=== PATIENT | female | born 1970 | race Caucasian/White ===

== ENCOUNTER → 2016-12-04 | Outpatient (CLI) | payer OTHER ==
[~2016-12-04] MED LIST: ACET-2267 PO; AMLO10TA2 PO; AMLO2.5T2 PO; ASPI-983 PO; ATOR20TA66 PO; BUDE10.2 IH; CATHETER FLUSH 10 ML SYR IV PRN; CLOP75TA28 PO; CLOP75TA69 PO; GABA-488 PO; LORA10TA7 PO; MECL-106 PO; METH4TAB PO; NAPR500T3 PO; OMG1KC PO; PANT40SU PO; PANT40TA2 PO; REGADENOSON 0.4 MG/5 ML SYR (LEXISCAN) IV ONE; TIOT4MIS2 IH; [UNRECOGNIZED DRUG - CODE] TP
--- OUTSIDE RECORDS SUMMARY | 2016-12-04 07:39 | XMS REPORT | Continuity of Care Document ---
Author Author [facility] Organization [facility] Address Unknown Phone Unavailable Care Team Providers Care Manager Employment Name Role Phone BELLO SEPULVEDA DO PCP Insurance Providers Payer Name Policy Number Subscriber Name Relationship CIGNA [id number] Elana Preciado 18 Self / Same As Patient Advance Directives Directive Response Recorded Date/Time Advance Directives No 07/17/16 11:49am Health Care Power of Holter Technician No 07/17/16 11:49am Organ Donor No 07/17/16 11:49am Problems Active Problems Medical Problem Onset Date Status Raynauds syndrome Unknown Acute Medications Current Home Medications Medication Dose Units Route Directions Days/Qty Instructions Start Date Tiotropium [place] 4 Gm 2 Puff Inhalation Once as needed for Daily 07/17/16 Budesonide/Formoterol Fumarate 10.2 Gm 1 Puff Inhalation Daily 07/17 Aspirin 81 Mg 81 Mg Oral Daily 07/17/16 Meclizine Hcl 25 Mg 25 Mg Oral Twice A Day as needed for Vertigo Naproxen 500 Mg 500 Mg Oral Twice A Day With Meals 07/17/16 Gabapentin 300 Mg 300 Mg Oral Twice A Day 07/17/16 Loratadine 10 Mg 10 Mg Oral Daily 07/17/16 Amlodipine Besylate 10 Mg 10 Mg Oral Daily 07/17/16 Povidone-Iodine 59 Ml Topical Twice A Day FOR USE ON LEFT HAND MIDDLE FINGER 07/17/16 Clopidogrel Bisulfate 75 Mg 75 Mg Oral Daily 07/18/16 Pantoprazole Sodium 40 Mg 40 Mg Oral Daily 16 Past Home Medications Medication Directions Ordered Status Methylprednisolone 4 Mg/Dose-Pack Tab.ds.pk, 0 Oral As Directed 09/26/11 Discontinued Amlodipine Besylate 2.5 Mg Tablet, 2.5 Mg Oral Daily 05/05/16 Discontinued Social History Social History Problem Response Recorded Date/Time Alcohol Use Denies Use 05/05/2016 9:24pm Recreational Drug Use No 05/05/2016 9:24pm Recent Foreign Travel No 06/27/2016 1:04pm Type Used Cigarettes 07/17/2016 12:03pm Hospital Discharge Instructions No hospital discharge instructions. Plan of Care Prescriptions See Medication Section Functional Status No functional status results. Allergies, Adverse Reactions, Alerts Allergen Type Severity Reaction Status Last Updated oxycodone HCl Allergy Severe SOA, RASH Active 09/26/11 Erythromycin Lactobionate Allergy Severe SOA, RASH Active 09/26/11 Sulfa (Sulfonamide Antibiotics) ([id number]) Allergy Unknown Active 07/06 Codeine Allergy Unknown Active 12/08/06 Acetaminophen Allergy Severe SOA, RASH Active 09/26/11 methocarbamol ([id number]) Allergy Severe SOA, RASH Active 09/26/11 Immunizations No immunization records. Vital Signs No known vital signs results. Results No known relevant diagnostic tests, laboratory data and/or discharge summary. Procedures No known history of procedures. Encounters Encounter Location Arrival/Admit Date Discharge/Depart Date Attending Provider Discharged Recurring [facility] 08/08/16 3:08pm 9:17am REMINGTON MUÑOZ APRN
--- NOTE | 2016-12-05 07:51 | ECHOCARDIOGRAPHY REPORT ---
PROCEDURE PHYSICIAN: LISY VIZCARRA DATE OF PROCEDURE: 12/04/2016 TWO DIMENSIONAL ECHOCARDIOGRAM REPORT PRIMARY PHYSICIAN: OTHER PHYSICIAN: REFERRING PHYSICIAN: Dr. Leung ORDERING PHYSICIAN: INDICATION FOR THE PROCEDURE: 1. Coronary artery disease. 2. Dyspnea. MEASUREMENTS DERIVED VALUES LV DIAMETER (LAX) NORMALS NORMALS Diastolic 4.4 (3.6-5.2) Eject. Fract. 60% (60%+/-6%) Systolic (2.3-3.9) Diastolic Vol. % Shortening (0.22-0.42) Systolic Vol. Aortic Root IVS THICKNESS Diastolic 1 (0.6-1.1) LVPW THICKNESS Diastolic 1 (0.6-1.1) LA DIAMETER Systolic 2.8 (2.1-3.7) FINDINGS: 1. Technical quality is good. 2. The left ventricle is normal in size with normal contractility. Systolic function appeared to be normal. Estimated ejection fraction 60%. 3. The left atrium is normal in size. No clot or thrombus were seen within the left atrium. 4. The right atrium and right ventricle are normal in size. No clot or thrombus were seen within the right side. 5. Mitral valve is normal in morphology with mild mitral regurgitation noted by color Doppler flow. No mitral valve prolapse. No mitral valve stenosis. 6. Aortic valve is trileaflet with normal opening and closing pattern. No significant aortic stenosis or regurgitation was seen. 7. Tricuspid valve is normal in morphology with mild tricuspid regurgitation noted by color Doppler flow. Doppler across tricuspid valve estimated pulmonary artery pressure of 6+ right atrial pressure. 8. Pulmonic valve is functioning normally. 9. No pericardial effusion. IN CONCLUSION: 1. Normal left ventricular size and systolic function. Estimated ejection fraction 60%. 2. Mild mitral and tricuspid regurgitation. 3. Estimated pulmonary artery pressure of 10 to 15 mmHg. Job ID: [id number] Dictated Date: 12/04/2016 16:46:11 Sr. Vendor Management Associate Date: 12/05/2016 07:48:13 / dalila
== END ==
LOC: CARD 07:36
PROVIDERS: ATTEND Internal Medicine Cardiovascular Disease
DX: I77.1 Stricture of artery (principal); M35.8 Other specified systemic involvement of connective tissue; L98.499 Non-pressure chronic ulcer of skin of other sites with unspecified severity; Z72.0 Tobacco use
CPT/HCPCS: 93306

== ENCOUNTER → 2016-12-09 | Outpatient (CLI) | payer OTHER ==
[~2016-12-09] VITALS: Ht 170.2 cm; Wt 83.0 kg
--- OUTSIDE RECORDS SUMMARY | 2016-12-09 07:31 | XMS REPORT | Continuity of Care Document ---
Author Author [facility] Organization [facility] Address Unknown Phone Unavailable Care Team Providers Care Dumping Machine Operator Name Role Phone BELLO SEPULVEDA DO PCP Insurance Providers Payer Name Policy Number Subscriber Name Relationship CIGNA [id number] Elana Preciado 18 Self / Same As Patient Advance Directives Directive Response Recorded Date/Time Advance Directives No 07/17/16 11:49am Health Care Power of Rehabilitation Services Manager No 07/17/16 11:49am Organ Donor No 07/17/16 11:49am Problems Active Problems Medical Problem Onset Date Status Raynauds syndrome Unknown Acute Medications Current Home Medications Medication Dose Units Route Directions Days/Qty Instructions Start Date Tiotropium [place] 4 Gm 2 Puff Inhalation Once as [...] SOA, RASH Active 09/26/11 Sulfa (Sulfonamide Antibiotics) ([id number]) Allergy Unknown Active 07/06 Codeine Allergy Unknown Active 12/08/06 Acetaminophen Allergy Severe SOA, RASH Active 09/26/11 methocarbamol ([id number]) Allergy Severe SOA, RASH Active 09/26/11 Immunizations No immunization records. Vital Signs No known vital signs results. Results No known relevant diagnostic tests, laboratory data and/or discharge summary. Procedures No known history of procedures. Encounters Encounter Location Arrival/Admit Date Discharge/Depart Date Attending Provider Discharged Recurring [facility] 08/08/16 3:08pm 9:17am REMINGTON MUÑOZ APRN
[2016-12-09 08:57] VITALS: BP 152/83
--- NOTE | 2016-12-09 11:29 | STRESS TEST ---
PROCEDURE PHYSICIAN: LISY VIZCARRA LEXISCAN MYOVIEW STRESS TEST REPORT DATE OF PROCEDURE: 12/09/2016 REFERRING PHYSICIAN: Dr. Leung INDICATION FOR THE PROCEDURE: Coronary artery disease, shortness of breath. Baseline heart rate is 68, baseline blood pressure: 157/75 baseline EKG: Sinus rhythm with no ischemic changes. SUMMARY: The patient was injected with 10.77 mCi of technetium 99 Myoview and the resting images were obtained. Then the patient received 0.4 mg of Lexiscan followed by 29.2 mCi of technetium 99 Myoview. Throughout the test, there were no EKG changes. The resting and stress images were reviewed and compared in the short axis, horizontal long axis, and vertical long axis views. Review of the images showed breast attenuation affecting the quality of the images, there is mild decreased uptake at the mid to apical anterior wall, with subtle reversibility. No significant ischemia was noted. SSS is 2, SDS 2, TID value 1.14. On the gated images, the left ventricle appeared to be normal size with normal contractility. Calculated ejection fraction 59%. CONCLUSION: 1. The patient tolerated Lexiscan well. 2. Breast attenuation with mild decreased uptake at the mid to apical anterior wall. Subtle reversibility. No significant ischemia was noted. 3. Normal left ventricular size with normal contractility. Calculated ejection fraction 59%. Job ID: [id number] Dictated Date: 12/09/2016 10:58:16 Conditioner Tumbler Operator Date: 12/09/2016 11:25:25 / alva
== END ==
LOC: CARD 07:26
PROVIDERS: ATTEND Internal Medicine Cardiovascular Disease
DX: Z01.810 Encounter for preprocedural cardiovascular examination (principal); L98.499 Non-pressure chronic ulcer of skin of other sites with unspecified severity; I77.1 Stricture of artery; Z72.0 Tobacco use; M35.8 Other specified systemic involvement of connective tissue; R06.02 Shortness of breath; I73.9 Peripheral vascular disease, unspecified
CPT/HCPCS: 78452; 93017

== ENCOUNTER 2016-12-11 07:45 | Day surgery (SDC) | payer OTHER ==
[~2016-12-11] VITALS: Ht 170.2 cm; Wt 80.3 kg
[2016-12-11] VITALS (7 sets, daily range): BP systolic 130–156; BP diastolic 69–93
[~2016-12-11 07:45] MED LIST changes: -ACET-2267 PO; -ATOR20TA66 PO; -CATHETER FLUSH 10 ML SYR IV PRN; -CLOP75TA69 PO; -OMG1KC PO; -PANT40TA2 PO; -REGADENOSON 0.4 MG/5 ML SYR (LEXISCAN) IV ONE
--- OUTSIDE RECORDS SUMMARY | 2016-12-11 07:48 | XMS REPORT | Continuity of Care Document ---
Author Author [facility] Organization [facility] Address Unknown Phone Unavailable Care Team Providers Care Distribution Warehouse Manager Name Role Phone BELLO SEPULVEDA DO PCP Insurance Providers Payer Name Policy Number Subscriber Name Relationship CIGNA [id number] Elana Preciado 18 Self / Same As Patient Advance Directives Directive Response Recorded Date/Time Advance Directives No 07/17/16 11:49am Health Care Power of Typing Teacher No 07/17/16 11:49am Organ Donor No 07/17/16 11:49am Problems Active Problems Medical Problem Onset Date Status Raynauds syndrome Unknown Acute Medications Current Home Medications Medication Dose Units Route Directions Days/Qty Instructions Start Date Tiotropium [place] 4 Gm 2 Puff Inhalation Once as [...] SOA, RASH Active 09/26/11 Sulfa (Sulfonamide Antibiotics) ([id number]) Allergy Unknown Active 07/06 Codeine Allergy Unknown Active 12/08/06 Acetaminophen Allergy Severe SOA, RASH Active 09/26/11 methocarbamol ([id number]) Allergy Severe SOA, RASH Active 09/26/11 Immunizations No immunization records. Vital Signs No known vital signs results. Results No known relevant diagnostic tests, laboratory data and/or discharge summary. Procedures No known history of procedures. Encounters Encounter Location Arrival/Admit Date Discharge/Depart Date Attending Provider Discharged Recurring [facility] 08/08/16 3:08pm 9:17am REMINGTON MUÑOZ APRN
--- OUTSIDE RECORDS SUMMARY | 2016-12-11 07:48 | XMS REPORT | Continuity of Care Document ---
Author Author [facility] Organization [facility] Address Unknown Phone Unavailable Care Team Providers Care Gasoline Locomotive Crane Operator Name Role Phone BELLO SEPULVEDA DO PCP Insurance Providers Payer Name Policy Number Subscriber Name Relationship CIGNA [id number] Elana Preciado 18 Self / Same As Patient Advance Directives Directive Response Recorded Date/Time Advance Directives No 07/17/16 11:49am Health Care Power of Feeder Switchboard Operator No 07/17/16 11:49am Organ Donor No 07/17/16 11:49am Problems Active Problems Medical Problem Onset Date Status Raynauds syndrome Unknown Acute Medications Current Home Medications Medication Dose Units Route Directions Days/Qty Instructions Start Date Tiotropium [place] 4 Gm 2 Puff Inhalation Once as [...] SOA, RASH Active 09/26/11 Sulfa (Sulfonamide Antibiotics) ([id number]) Allergy Unknown Active 07/06 Codeine Allergy Unknown Active 12/08/06 Acetaminophen Allergy Severe SOA, RASH Active 09/26/11 methocarbamol ([id number]) Allergy Severe SOA, RASH Active 09/26/11 Immunizations No immunization records. Vital Signs No known vital signs results. Results No known relevant diagnostic tests, laboratory data and/or discharge summary. Procedures No known history of procedures. Encounters Encounter Location Arrival/Admit Date Discharge/Depart Date Attending Provider Discharged Recurring [facility] 08/08/16 3:08pm 9:17am REMINGTON MUÑOZ APRN
[2016-12-11] MEDS ORDERED: NS IV 1000 ML 1,000 ML ONE (08:21)
[2016-12-11] MEDS ORDERED: HEParin (CATH LAB) 2,000 ML IV ONE (08:21)
[2016-12-11] MEDS ORDERED: LIDOCAINE 1% INJ 20 ML (XYLOCAINE) VIAL ONE ×2 (08:21→11:13)
[2016-12-11] MEDS ORDERED: NS IV 1000 ML 1,000 ML IV SCH (09:00)
[2016-12-11 09:21] LABS: BILIRUBIN,URINE NEGATIVE (NEGATIVE); KETONES,URINE NEGATIVE (NEGATIVE); LEUKOCYTE ESTERASE ,URINE NEGATIVE (NEGATIVE); NITRITE,URINE NEGATIVE (NEGATIVE); PH,URINE 6.5 (5-9); PROTEIN,URINE NEGATIVE (NEGATIVE); UROBILINOGEN,URINE NORMAL (NORMAL)
[2016-12-11] MEDS ORDERED: CLOP75TA69 PO (09:22)
[2016-12-11 09:23] LABS: RED BLOOD COUNT 4.95 10^6/uL (4.35-5.85); RED CELL DISTRIBUTION WIDTH 13.7 % (10.0-14.5)
[2016-12-11] MEDS ORDERED: PANT40TA2 PO (09:24)
[2016-12-11] MEDS ORDERED: ACET-2267 PO (09:24)
--- NOTE | 2016-12-11 09:27 | Diagnostic Imaging Report ---
INDICATION: Shortness breath, tobacco use. EXAMINATION: Portable chest at 9:16 AM. FINDINGS: There are some emphysematous changes in the lungs with scarring. There is some scarring and/or granulomatous change at the right lung base. All of these appear stable compared to 07/17/2016. There are no infiltrates, effusions, or pneumothoraces. IMPRESSION: No acute abnormality is seen. No interval change compared to 07/17/2016. Dictated by: Dictated on workstation # [id number]
[2016-12-11 09:30] LABS: PROTHROMBIN TIME PATIENT 12.6 SEC (12.2-14.7)
[2016-12-11 09:38] LABS: ALANINE AMINOTRANSFERASE 15 U/L (0-55); ALBUMIN 4.3 G/DL (3.2-4.5); ANION GAP 9 MMOL/L (5-14); ASPARTATE AMINO TRANSFERASE 14 U/L (5-34); BILIRUBIN,TOTAL 0.5 MG/DL (0.1-1.0); BLOOD UREA NITROGEN 10 MG/DL (7-18); BUN/CREATININE RATIO 13; CARBON DIOXIDE 24 MMOL/L (21-32); CHLORIDE 106 MMOL/L (98-107); CHOLESTEROL 209 MG/DL (< 200); CREATININE SERUM 0.75 MG/DL (0.60-1.30); DIRECT LDL 162 MG/DL (1-129); GFR ESTIMATED > 60; GLUCOSE 89 MG/DL (70-105); POTASSIUM 3.6 MMOL/L (3.6-5.0); SODIUM 139 MMOL/L (135-145); TOTAL PROTEIN 6.9 G/DL (6.4-8.2); TRIGLYCERIDES 146 MG/DL (<150); VLDL CHOLESTEROL 29 MG/DL (5-40)
--- NOTE | 2016-12-11 10:39 | Cardiac Procedure Note-CS/ASA ---
Pre-Procedure Note Pre-Op Procedure Note H&P Reviewed The H&P was reviewed, patient examined and no changes noted. Date H&P Reviewed: Dec 11, 2016 Time H&P Reviewed: 10:39 Conscious Sedation Pre-Proced Time Reviewed: 10:39 ASA Class: 3 Airway Mallampati Classification: ([place] appropriate class) I. II. III, IV Lungs Heart ASA score ASA 1: a normal healthy patient ASA 2: a patient with a mild systemic disease (mid diabetes, controlled hypertension, obesity X ASA 3: a patient with a severe systemic disease that limits activity (angina , COPD, prior Myocardial infarction) ASA 4: a patient with an incapacitating disease that is a constant threat to life (CHF, renal failure) ASA 5: a moribund patient not expected to survive 24 hrs. (ruptured aneurysm) ASA 6: a declared brain patient whose organs are being harvested. For emergent operations, add the letter E after the classification Grade 3 Sedation Plan: Analgesia, Amnesia, Plan communicated to team members, Discussed options with patient/fam, Discussed risks with patient/fam Note The patient is an appropriate candidate to undergo the planned procedure, sedation, and anesthesia. The patient immediately re-assessed prior to indication. LISY VIZCARRA MD Dec 11, 2016 10:39
[2016-12-11] MEDS ORDERED: NITROGLYCERIN DRIP 25 MG/D5W 250 ML IV ONE (11:01)
[2016-12-11] MEDS ORDERED: MIDAZOLAM 5 MG/5 ML (VERSED) VIAL ONE ×2 (11:13→12:05)
[2016-12-11] MEDS ORDERED: HEParin 1000 UNIT/ML (10ML VIAL) FOR BOLUS ONE (11:14)
[2016-12-11] MEDS ORDERED: fentaNYL INJECTION 100 MCG/2 ML AMP ONE ×2 (11:14→12:05)
[2016-12-11] MEDS: NS IV 1000 ML 1,000 ML IV SCH ×2 (12:04→22:30)
[2016-12-11] MEDS ORDERED: ASPIRIN 81 MG CHEW (CHILDREN'S ASA) ONE (12:10)
[2016-12-11] MEDS ORDERED: CLOPIDOGREL 300 MG (PLAVIX) TABLET PO ONE (12:10)
[2016-12-11] MEDS ORDERED: PATIENT MAY USE OWN MEDS, ALL PO SCH (12:15)
[2016-12-11] MEDS ORDERED: ACETAMINOPHEN 500 MG TAB (TYLENOL) PO PRN (12:15)
[2016-12-11] MEDS ORDERED: MECLIZINE 25 MG (ANTIVERT) TAB PO SCH (13:00)
[2016-12-11] MEDS: OMEGA 3 (FISH OIL) 1000 MG CAP PO SCH (16:34)
[2016-12-11] MEDS: MECLIZINE 25 MG (ANTIVERT) TAB PO SCH (19:52)
[2016-12-11] MEDS ORDERED: ATORVASTATIN 20 MG (LIPITOR) TABLET PO SCH (21:00)
[2016-12-12] VITALS: BP 126/83
[2016-12-12 04:00] VITALS: BP 142/97
[2016-12-12 05:01] LABS: RED BLOOD COUNT 4.76 10^6/uL (4.35-5.85); RED CELL DISTRIBUTION WIDTH 13.8 % (10.0-14.5); WHITE BLOOD COUNT 13.2 10^3/uL (4.3-11.0)
[2016-12-12 05:19] LABS: ANION GAP 9 MMOL/L (5-14); BLOOD UREA NITROGEN 6 MG/DL (7-18); BUN/CREATININE RATIO 8; CALCIUM 8.9 MG/DL (8.5-10.1); CARBON DIOXIDE 23 MMOL/L (21-32); CHLORIDE 105 MMOL/L (98-107); CREATININE SERUM 0.74 MG/DL (0.60-1.30); GFR ESTIMATED > 60; GLUCOSE 87 MG/DL (70-105); POTASSIUM 3.5 MMOL/L (3.6-5.0); SODIUM 137 MMOL/L (135-145)
[2016-12-12] MEDS: OMEGA 3 (FISH OIL) 1000 MG CAP PO SCH (06:45)
[2016-12-12] MEDS: MECLIZINE 25 MG (ANTIVERT) TAB PO SCH (06:48)
[2016-12-12] MEDS: NS IV 1000 ML 1,000 ML IV SCH (06:52)
[2016-12-12] MEDS ORDERED: PANTOPRAZOLE 40 MG (PROTONIX) TAB PO SCH (07:00)
--- NOTE | 2016-12-12 07:59 | Cardiology Progress Note ---
Subjective Subjective/Events-last exam patient is feeling well, both groins are healing well. Palpable pulses bilaterally. Review of Systems General: No Chills, No Night Sweats, No Fatigue, No Malaise, No Appetite, No Other HEENT: No Head Aches, No Visual Changes, No Eye Pain, No Ear Pain, No Dysphasia , No Sinus Congestion, No Post Nasal Drip, No Sore Throat, No Other Pulmonary: No Dyspnea, No Cough, No Pleuritic Chest Pain, No Other Cardiovascular: No: Chest Pain, Edema, Lt Headedness, Orthopnea, Other, Palpitations, Paroxysmal Noc. Dyspnea Objective-Cardiology Exam Last Set of Vital Signs Vital Signs 12/12/16 04:00 Temp 97.1 Pulse 85 Resp 18 B/P 142/97 Pulse Ox 99 O2 Delivery Room Air Capillary Refill : Less Than 3 Seconds I&O Intake and Output 12/12/16 00:00 Intake Total 720 ml Balance 720 ml Intake Oral 720 ml # Voids 2 General: Alert, Oriented X3, Cooperative HEENT: Atraumatic, PERRLA Neck: Supple, No JVD, No Thyromegaly Lungs: Clear to Auscultation, Normal Air Movement Heart: Regular Rate, Normal S1, Normal S2, No Murmurs Abdomen: Normal Bowel Sounds, Soft, No Tenderness, No Hepatosplenomegaly, No Masses Extremities: No Clubbing, No Cyanosis, No Edema, Normal Pulses, No Tenderness/ Swelling Skin: No Rashes, No Breakdown, No Significant Lesion Neuro: Normal Gait, Normal Speech, Strength at 5/5 X4 Ext, Normal Tone, Sensation Intact Psych/Mental Status: Mental Status NL, Mood NL Results Lab Laboratory Tests 12/11/16 09:14 12/12/16 04:38 A/P-Cardiology Admission Diagnosis coronary artery disease Peripheral arterial disease Hypertension Hyperlipidemia Tobaccoism Assessment/Plan coronary artery disease, ostial circumflex artery stenosis. Moderate disease Peripheral arterial disease total occlusion of the left common iliac status post pertains intervention with stent with excellent results. History of subclavian stenosis with gangrenous finger. Improving. Hypertension, controlled. Continue current medication Hyperlipidemia, controlled Tobaccoism educated again in length on smoking cessation LISY VIZCARRA MD Dec 12, 2016 07:59
[2016-12-12 08:00] VITALS: BP 134/69
[2016-12-12] MEDS ORDERED: ATOR20TA66 PO (08:00)
[2016-12-12] MEDS ORDERED: UMECLIDINIUM BROMIDE (INCRUSE ELLIPTA) 7'S IH SCH (08:00)
[2016-12-12] MEDS ORDERED: TIOTROPIUM BROMIDE (SPIRIVA) 5'S INHALER IH SCH (08:00)
[2016-12-12] MEDS ORDERED: OMG1KC PO (08:00)
--- NOTE | 2016-12-12 08:01 | Discharge Inst-Post CATH ---
Discharge Inst-CATH Post Cardiac Cath D/C Inst Follow Up/Plan Appointment with Dr. Asif's office in 2-4 weeks CARDIAC CATH DISCHARGE INSTRUCTIONS *Hold Metformin for 48 hours post heart cath. ACTIVITY * Go Home directly and rest. * Limit activity of the leg (or wrist if it was used) for 7 days including aerobics, swimming, jogging, bicycling, etc. * Restrict stair-climbing for 7 days if possible, if not, climb up with your non -cath leg, then bring together on the same step. * Avoid lifting, pushing, pulling or excessive movement of the affected extremity for 7 days. * Customary sexual activity may be resumed after 2 days-use caution not to use a position that strains or causes pain to the affected extremity. * No driving for 24 hours. * NO SMOKING. * Avoid straining for bowel movements for 7 days. * Gentle walking on level ground is allowed. * Returning to work will depend on the type of procedure and the results. Your doctor will discuss this with you. CALL YOUR DOCTOR FOR ANY OF THE FOLLOWING: *If bleeding from the puncture site occurs- Apply gentle pressure to site with clean cloth and call your doctor or EMS. * If a knot or lump forms under the skin, increases in size, or causes pain. * If bruising appears to be worsening or moving further down your leg instead of disappearing. * Temperature above 101 F. CARE OF YOUR GROIN INCISION; * Bruising or purple discoloration of the skin near the puncture site is common. * You may shower only, no bathtub bathing for 5 days. Be careful to avoid slipping as your leg may feel stiff. * If a closure device was used on your femoral artery, please see the attached guide regarding care of the device and your leg. * REMOVE the dressing from your groin the next day after your procedure in the shower. CARE OF YOUR WRIST INCISION; * Bruising or purple discoloration of the skin near the puncture site is common. * You may shower. * DO NOT submerge wrist. * Remove dressing in 24 hours. LISY ASIF MD Dec 12, 2016 08:01
[2016-12-12] MEDS ORDERED: KCL 20 MEQ TAB (K-DUR) PO NR (08:17)
[2016-12-12 09:00] VITALS: BP 134/69
[2016-12-12] MEDS ORDERED: ASPIRIN E.C. 81 MG (ECOTRIN) TAB PO SCH ×2 (09:00)
[2016-12-12] MEDS ORDERED: NON-FORMULARY MEDICATION 1 EA EA (Tiotropium Bromide (Spiriva Respimat) 2 PUFF) IH SCH (09:00)
[2016-12-12] MEDS ORDERED: CLOPIDOGREL 75 MG (PLAVIX) TABLET PO SCH ×2 (09:00)
--- NOTE | 2016-12-12 10:38 | CARDIAC CATHETERIZATION ---
PROCEDURE PHYSICIAN: LISY VIZCARRA CARDIAC CATHETERIZATION REPORT WITH PERIPHERAL ANGIOGRAM DATE OF PROCEDURE: 12/11/2016 REFERRING PHYSICIAN: Dr. Mora BRIEF HISTORY: Mrs. Tompkins is a 46-year-old lady with history of peripheral arterial disease. She had subclavian stenosis and a stent placed in her left subclavian artery. She has been having lower extremity pain. Had an abnormal MAGNUS is 0.77 on the right and 0.58 on the left. The patient had an abnormal stress test with breast attenuation and decreased uptake at the mid to apical anterior wall, with subtle reversibility. She was scheduled for left heart catheterization, possible PTCA and peripheral angiogram. PROCEDURE NOTE: After explaining the procedure to the patient, all pros and cons were explained. All questions were answered. The patient signed a consent, then she was placed on the cardiac catheterization laboratory. The right groin was prepped in a sterile fashion. Local anesthesia applied to the right groin. 6-Vietnamese sheath was placed in the right femoral artery. Combination of right and left Aubree catheter were used to access the right and left coronary system. Multiple views were used. Pigtail catheter advanced to the left ventricular cavity. Pressure was measured. No left ventriculogram was done. Pullback LV to aorta was done. The aortic arch angiogram was done. Then I pulled pigtail catheter to the abdominal aorta an abdominal aortogram with runoff to the lower extremity was done. At that point, the patient was noted to have total occlusion of the left iliac artery, common iliac artery. I attempted to cross over from using an IM guide without success. I proceeded with placement of a sheath on the left groin. After placement of the sheet I used IMC, I placed it at the ostium of occlusion then I was able to advance a glidewire across the lesion. Proceeded with balloon dilatation using 5.0 x 40 mm balloon, [place] 35 balloon without any complication. Multiple inflations were made. Then after that through the left sheath I was able to advance a Storq wire easily without difficulties, proceed with placement of the pigtail catheter in the abdominal aorta. Did angiogram again, then proceeded with stent deployment using Omnilink elite 7 x 59 x 80 metal stent expanded over a balloon at the common femoral area. It appears that the artery is slightly larger. I reintroduced the [place] balloon 8 mm and expanded the distal portion of the stent without complication. Angiogram showed excellent result. Pressure was measured at the left groin prior to the procedure and after the procedure showing significant improvement. At that point both sheaths were removed. Mynx device deployed. Hemostasis achieved. HEMODYNAMICS: The left ventricle pressure is 111/14, end-diastolic pressure 14, aortic pressure 111/60, mean of 80 no significant gradient across the aortic valve. ANATOMY: 1. Left main coronary artery is bifurcating to left anterior descending and left circumflex artery with no obstructive disease. 2. Left anterior descending artery is moderate in size with mild irregularity. No significant obstructive disease. 3. Left circumflex artery is moderate in size, 60% ostial left circumflex artery stenosis. It appeared to be moderate. 4. Right coronary artery is moderate in size with mild disease, nonobstructive disease. 5. Aortic arch angiogram: Aortic arch was done in the left anterior oblique position. The aortic arch is normal in size. Origin of the carotid artery, innominate artery and left subclavian artery appeared patent, the stent in the left subclavian artery is patent. 6. Abdominal aortogram with bilateral runoff: Abdominal aortogram was done with automatic injection with bilateral runoff of the lower extremities. The abdominal aorta is normal in size. There is mild disease on the right side, down to the trifurcation; the flow was brisk. There is total occlusion on the left side at the left common iliac artery. PERCUTANEOUS INTERVENTION: The patient had total occlusion of the left common iliac artery. Successful complex intervention, then deployment of Omnilink Elite bare-metal stent 7 x 59 x 80 with sikh of the flow with expanded at the common iliac area to 7 mm and distally at the common femoral area to 8 mm with excellent results. Pressure gradient returned to normal immediately after the intervention. CONCLUSION: 1. Total occlusion of the left common iliac artery, status post percutaneous intervention, then stent deployment using Omnilink Elite 7.0 x 59 mm bare metal stent, expanded to 7 mm at the iliac area and 8 mm the femoral area with excellent results. 2. Patent stent in the left subclavian artery with no obstructive disease. 3. 60% ostial left circumflex artery stenosis, nonobstructive disease, mild to moderate disease in the LAD and right coronary artery. DISCUSSION AND RECOMMENDATION: Mrs. Tompkins had ischemia in the anterior wall does not match 60% ostial circumflex lesion. Medical therapy is recommended. I will monitor her closely and consider reevaluation in one year. Possible FFR to that area. Continue with aspirin and Plavix, encourage smoking cessation and started on Lipitor and fish oil. Encourage compliance with medication. Job ID: [id number] Dictated Date: 12/11/2016 12:16:19 Data Integrity Specialist Date: 12/12/2016 10:17:17 / alva
--- NOTE | 2016-12-12 10:41 | DISCHARGE SUMMARY ---
PROCEDURE PHYSICIAN: LISY VIZCARRA CARDIAC CATHETERIZATION REPORT WITH PERIPHERAL ANGIOGRAM DATE OF PROCEDURE: 12/11/2016 REFERRING PHYSICIAN: Dr. Mora BRIEF HISTORY: Mrs. Tompkins is a 46-year-old lady with history of peripheral arterial disease. She had subclavian stenosis and a stent placed in her left subclavian artery. She has been having lower extremity pain. Had an abnormal MAGNUS is 0.77 on the right and 0.58 on the left. The patient had an abnormal stress test with breast attenuation and decreased uptake at the mid to apical anterior wall, with subtle reversibility. She was scheduled for left heart catheterization, possible PTCA and peripheral angiogram. PROCEDURE NOTE: After explaining the procedure to the patient, all pros and cons were explained. All questions were answered. The patient signed a consent, then she was placed on the cardiac catheterization laboratory. The right groin was prepped in a sterile fashion. Local anesthesia applied to the right groin. 6-Bulgar[place] sheath was placed in the right femoral artery. Combination of right and left Aubree catheter were used to access the right and left coronary system. Multiple views were used. Pigtail catheter advanced to the left ventricular cavity. Pressure was measured. No left ventriculogram was done. Pullback LV to aorta was done. The aortic arch angiogram was done. Then I pulled pigtail catheter to the abdominal aorta an abdominal aortogram with runoff to the lower extremity was done. At that point, the patient was noted to have total occlusion of the left iliac artery, common iliac artery. I attempted to cross over from using an IM guide without success. I proceeded with placement of a sheath on the left groin. After placement of the sheet I used IMC, I placed it at the ostium of occlusion then I was able to advance a glidewire across the lesion. Proceeded with balloon dilatation using 5.0 x 40 mm balloon, [place] 35 balloon without any complication. Multiple inflations were made. Then after that through the left sheath I was able to advance a Storq wire easily without difficulties, proceed with placement of the pigtail catheter in the abdominal aorta. Did angiogram again, then proceeded with stent deployment using Omnilink elite 7 x 59 x 80 metal stent expanded over a balloon at the common femoral area. It appears that the artery is slightly larger. I reintroduced the [place] balloon 8 mm and expanded the distal portion of the stent without complication. Angiogram showed excellent result. Pressure was measured at the left groin prior to the procedure and after the procedure showing significant improvement. At that point both sheaths were removed. Mynx device deployed. Hemostasis achieved. HEMODYNAMICS: The left ventricle pressure is 111/14, end-diastolic pressure 14, aortic pressure 111/60, mean of 80 no significant gradient across the aortic valve. ANATOMY: 1. Left main coronary artery is bifurcating to left anterior descending and left circumflex artery with no obstructive disease. 2. Left anterior descending artery is moderate in size with mild irregularity. No significant obstructive disease. 3. Left circumflex artery is moderate in size, 60% ostial left circumflex artery stenosis. It appeared to be moderate. 4. Right coronary artery is moderate in size with mild disease, nonobstructive disease. 5. Aortic arch angiogram: Aortic arch was done in the left anterior oblique position. The aortic arch is normal in size. Origin of the carotid artery, innominate artery and left subclavian artery appeared patent, the stent in the left subclavian artery is patent. 6. Abdominal aortogram with bilateral runoff: Abdominal aortogram was done with automatic injection with bilateral runoff of the lower extremities. The abdominal aorta is normal in size. There is mild disease on the right side, down to the trifurcation; the flow was brisk. There is total occlusion on the left side at the left common iliac artery. PERCUTANEOUS INTERVENTION: The patient had total occlusion of the left common iliac artery. Successful complex intervention, then deployment of Omnilink Elite bare-metal stent 7 x 59 x 80 with shinto of the flow with expanded at the common iliac area to 7 mm and distally at the common femoral area to 8 mm with excellent results. Pressure gradient returned to normal immediately after the intervention. CONCLUSION: 1. Total occlusion of the left common iliac artery, status post percutaneous intervention, then stent deployment using Omnilink Elite 7.0 x 59 mm bare metal stent, expanded to 7 mm at the iliac area and 8 mm the femoral area with excellent results. 2. Patent stent in the left subclavian artery with no obstructive disease. 3. 60% ostial left circumflex artery stenosis, nonobstructive disease, mild to moderate disease in the LAD and right coronary artery. DISCUSSION AND RECOMMENDATION: Mrs. Tompkins had ischemia in the anterior wall does not match 60% ostial circumflex lesion. Medical therapy is recommended. I will monitor her closely and consider reevaluation in one year. Possible FFR to that area. Continue with aspirin and Plavix, encourage smoking cessation and started on Lipitor and fish oil. Encourage compliance with medication. FINAL DIAGNOSIS: 1. Coronary artery disease. 2. Peripheral arterial disease. 3. Hyperlipidemia. 4. Gangrenous finger. Job ID: [id number] Dictated Date: 12/11/2016 12:16:19 [employer] Date: 12/12/2016 10:37:56/alva
== END 2016-12-12 09:05 | disposition home or self-care (01) ==
LOC: CATH 07:45 → ICU 12:30 → 4TH 20:58 → CATH 12-12 09:05
PROVIDERS: ATTEND Internal Medicine Cardiovascular Disease
DX: R94.39 Abnormal result of other cardiovascular function study (principal); I70.203 Unspecified atherosclerosis of native arteries of extremities, bilateral legs; I70.92 Chronic total occlusion of artery of the extremities; I25.10 Atherosclerotic heart disease of native coronary artery without angina pectoris; I73.01 Raynaud's syndrome with gangrene; L98.499 Non-pressure chronic ulcer of skin of other sites with unspecified severity; Z79.899 Other long term (current) drug therapy; Z72.0 Tobacco use
CPT/HCPCS: 36221; 36415; 37221; 71010; 75630; 80048; 80053; 80061; 81000; 85027; 85347; 85610; 85730; 87081; 93005; 93458

== ENCOUNTER → 2017-07-08 | Outpatient (CLI) | payer OTHER ==
[~2017-07-08] MED LIST changes: +ACET-2267 PO; +ATOR20TA66 PO; +CATHETER FLUSH 10 ML SYR IV PRN; +CLOP75TA69 PO; +IOHEXOL 350 MG/ML 100 ML (OMNIPAQUE 350) VIAL IV ONE; +NS 100 ML (IVPB) BAG IV ONE; +OMG1KC PO; +PANT40TA2 PO
--- NOTE | 2017-07-08 11:56 | Diagnostic Imaging Report ---
CLINICAL INDICATION: Patient with bilateral carotid stenosis. Patient states no issues. Patient has a stent under left clavicle area. EXAM: CT angiogram of the neck/carotids performed with 80 cc of Omnipaque 350 IV contrast. Coronal and sagittal MIP images were created to better evaluate anatomy. COMPARISON: None. FINDINGS: Streak artifact from patient body habitus partially obscures the aortic arch and proximal great vessels. There is motion artifact with duplication appearance of the stent within the proximal left subclavian artery which greatly limits evaluation. Adjacent streak artifact also greatly limits evaluation. There is contrast seen within the stent which is grossly patent. There is contrast within the cervical left vertebral artery and left subclavian artery. Again, the streak and motion artifact limits evaluation for subtle areas of stenosis. There is atherosclerotic plaque involving the origin of the left common carotid artery with no significant stenosis. Three-vessel aortic arch is seen. There is mild narrowing of the origin of the left cervical vertebral artery. Relatively dominant left vertebral artery is seen. Both cervical vertebral arteries are patent. There is noncalcified atherosclerotic plaque involving the origin of the right common carotid artery causing mild stenosis. There is also a partially calcified atherosclerotic plaque involving the distal right CCA, proximal right ECA, and proximal right cervical ICA. There is complete occlusion of the proximal cervical right ICA at its origin. There is reconstitution of the cavernous right carotid artery at the level of the ophthalmic artery. There is also a prominent anterior communicating artery and right A1 GASTON which may also be contributing to reconstitution. There is very small caliber of the right cavernous carotid artery to its supraclinoid region. Remainder of the visualized [place] is unremarkable. The origin of the right ECA is severely narrowed and near occlusion with string sign seen. There is contrast opacification of the distal branches of the left ECA. There is atherosclerotic disease of the origins of the left ECA and ICA which show mild narrowing. There is multiple calcified nodules within the visualized upper lung lama. There is significant emphysematous lung disease. There are curvilinear opacities, patchy areas of consolidation, and parenchymal band seen within both upper lobes. There is mild prominence of the posterior lingual adenoid soft tissue which may be reactive. Otherwise, the neck soft tissue structures show no significant abnormality. There is no lymphadenopathy. There is suggestion of diffuse disc bulge at the C5-C6 level with posterior disc spurs which cause at least mild central canal narrowing and at least mild to moderate left neural foramen narrowing. Visualized portion of the intracranial structures is unremarkable. IMPRESSION: 1: Limited evaluation of the neck vascular structures near the aortic arch and great vessels due to patient body habitus and streak artifact. 2: Proximal left subclavian artery stent is seen, but motion artifact and streak artifact greatly obscures this region. There is contrast seen within the left subclavian stent and contrast within the left subclavian vein and left cervical vertebral artery. Due to the artifact, it is difficult to evaluate for any degree of more subtle stenosis. 3: There is complete occlusion of the cervical right ICA which is reconstituted in the cavernous right ICA region. Cervical right ICA may be reconstituted from the right ophthalmic artery and/or prominent anterior communicating artery. The [place] vessels are otherwise patent with no significant stenosis. 4: There is near complete occlusion of the origin of the right ECA. 5: There is mild stenosis of the origin of the cervical left ICA, proximal left ECA, origin of the cervical left vertebral artery, and origin of the right common carotid artery. 6: Significant emphysematous lung disease with patchy areas of consolidation and suspected scarring with partially calcified nodules. Chest CT scan with contrast would help better evaluate to exclude an underlying mass. Dictated by: Dictated on workstation # [id number]
== END ==
LOC: RAD 07:50
PROVIDERS: ATTEND Internal Medicine Cardiovascular Disease
DX: I65.21 Occlusion and stenosis of right carotid artery (principal); J43.9 Emphysema, unspecified; Z95.828 Presence of other vascular implants and grafts
CPT/HCPCS: 70498

== ENCOUNTER → 2017-07-16 | Outpatient (CLI) | payer OTHER ==
[~2017-07-16] MED LIST changes: -NAPR500T3 PO; +NAPR500T4 PO
--- NOTE | 2017-07-16 17:06 | Diagnostic Imaging Report ---
PROCEDURE: CT chest with contrast only. TECHNIQUE: Multiple contiguous axial images were obtained through the chest after administration of intravenous contrast. INDICATION: Abnormal CT examination. FINDINGS: The recent CTA neck exam of 07/08/2017 noted significant emphysematous lung disease with patchy areas of consolidation and suspected scarring in both lung apices. There were also partially calcified nodules. Those findings are again evident on this study and do not seem to have changed significantly. Furthermore, in reviewing the previous CT chest exam of 10/08/2011, I feel that the areas of abnormal parenchymal density are also stable when compared to that exam. There are also small subcentimeter nodular densities in both lungs, and these seem similar to the prior exam as well. The emphysematous changes and the scar formation involving both lungs seen on the prior study do not appear to have progressed significantly. There is no sign of failure, pneumonia, or pleural effusion to indicate an acute abnormality. The heart size is stable when compared to the prior study and within normal limits. The aorta is not abnormally dilated, and there is no sign of a dissection. The pulmonary arteries were not well opacified and consequently difficult to evaluate for a pulmonary embolus. There is no obvious defect to suggest a pulmonary embolus. There is no mediastinal or hilar adenopathy. The thyroid gland were visualized is unremarkable. There is no evidence of an obvious breast mass. According to our records, the patient has not had a mammogram since 04/28/2015. If the patient has had a recent (within the last year) mammogram elsewhere, then no additional imaging would be recommended. However, if the patient has not had a recent mammogram, then mammography would be recommended. The sections through the upper abdomen fail to show any sign of an acute abnormality. The bone windows are unremarkable for a fracture or for a destructive lesion. IMPRESSION: 1. There are chronic pulmonary changes involving both lungs, particularly the lung apices. There are also nodules in each lung. These findings do seem similar to the prior exam of 10/08/2011. There is no evidence for a neoplastic mass, and there is no sign of an acute cardiopulmonary abnormality. 2. There is no obvious breast mass. Recommendations as above. Dictated by: Dictated on workstation # [id number]
== END ==
LOC: RAD 15:58
PROVIDERS: ATTEND Family Medicine
DX: R91.8 Other nonspecific abnormal finding of lung field (principal)
CPT/HCPCS: 71260

== ENCOUNTER → 2017-08-04 | Outpatient (CLI) | payer OTHER ==
[~2017-08-04] MED LIST changes: -CATHETER FLUSH 10 ML SYR IV PRN; -IOHEXOL 350 MG/ML 100 ML (OMNIPAQUE 350) VIAL IV ONE; -NS 100 ML (IVPB) BAG IV ONE
--- NOTE | 2017-08-05 10:27 | Diagnostic Imaging Report ---
EXAMINATION: Bilateral screening mammogram 2D views with tomosynthesis. The current study was also evaluated with a Computer Aided Detection (CAD) system. INDICATION: Screening. PERSONAL HISTORY: No current complaints stated on the questionnaire. COMPARISON: 05/03/2015. FINDINGS: There are scattered fibroglandular densities. There is an asymmetry with question of architectural distortion seen in the posterior aspect on the left MLO view just above the nipple line level which persist on the tomographic evaluation. The right breast demonstrates no definite change. IMPRESSION: Focal compression view and ultrasound evaluation for an asymmetry in the posterior slightly superior aspect of the left MLO view would be recommended. ACR BI-RADS Category 0: Incomplete. (Needs additional imaging evaluation). Result letter will be mailed to the patient. Note: At least 10% of breast cancer is not imaged by mammography. Dictated by: Dictated on workstation # [id number]
== END ==
LOC: RAD 07:23
PROVIDERS: ATTEND Family Medicine
DX: Z12.31 Encounter for screening mammogram for malignant neoplasm of breast (principal)
CPT/HCPCS: 77067

== ENCOUNTER → 2017-08-14 | Outpatient (CLI) | payer OTHER ==
--- NOTE | 2017-08-14 17:38 | Diagnostic Imaging Report ---
EXAMINATION: Left breast diagnostic mammogram with tomography. The current study was also evaluated with a Computer Aided Detection (CAD) system. COMPARISON: 08/04/17. INDICATION: Asymmetry was seen along the posterior central aspect of the left MLO view. FINDINGS/IMPRESSION: The area of asymmetry was evaluated with focal compression views with no definite underlying lesion seen in favor of summation artifact of parenchyma. Ultrasound evaluation pending. ACR BI-RADS Category 0: Incomplete. (Needs additional imaging evaluation). Result letter will be mailed to the patient. Note: At least 10% of breast cancer is not imaged by mammography. Dictated by: Dictated on workstation # [id number]
--- NOTE | 2017-08-14 17:41 | Diagnostic Imaging Report ---
EXAMINATION: Left breast ultrasound. INDICATION: Asymmetry along the posterior superior aspect of the left breast. FINDINGS: Unremarkable breast parenchyma is seen with no focal lesion. IMPRESSION: Negative study. Annual screening mammogram is recommended. ACR BI-RADS Category 1: Negative. Result letter will be mailed to the patient. Note: At least 10% of breast cancer is not imaged by mammography. Dictated by: Dictated on workstation # [id number]
== END ==
LOC: RAD 07:41
PROVIDERS: ATTEND Family Medicine
DX: R92.8 Other abnormal and inconclusive findings on diagnostic imaging of breast (principal)
CPT/HCPCS: 76642

== ENCOUNTER → 2018-10-06 | Outpatient (CLI) | payer OTHER ==
[~2018-10-06] MED LIST changes: -AMLO10TA2 PO; +AMLO10TA6 PO; +NAPR-915 PO; -NAPR500T4 PO
--- NOTE | 2018-10-07 20:22 | Diagnostic Imaging Report ---
INDICATION: Screening. EXAMINATION: Digital mammogram bilateral screening with 3-D tomosynthesis. The current study was also evaluated with a Computer Aided Detection (CAD) system. This study was compared to the prior exams of 08/04/2017 and 04/28/2015. At this time, there are no current complaints. FINDINGS: There are scattered fibroglandular densities in both breasts which could obscure a lesion. On the MLO view of the right breast in the midportion of the superior half of the breast roughly 4 cm from the nipple, there is a 6 mm asymmetric density. There is no corresponding abnormality seen on the craniocaudal view though this density does seem to persist somewhat on the tomographic images. I would recommend that a compression view of this area be obtained in the MLO projection as well as a true lateral view for further study. Ultrasound should also be performed. The left breast is unchanged. IMPRESSION: Additional mammographic views of the right breast would be recommended. Ultrasound should also be performed. ACR BI-RADS Category 0: Incomplete. (Needs additional imaging evaluation). Result letter will be mailed to the patient. Note: At least 10% of breast cancer is not imaged by mammography. Dictated on workstation # [id number]
== END ==
LOC: RAD 07:09
PROVIDERS: ATTEND Family Medicine
DX: Z12.31 Encounter for screening mammogram for malignant neoplasm of breast (principal)
CPT/HCPCS: 77067

== ENCOUNTER → 2018-10-29 | Outpatient (CLI) | payer OTHER ==
--- NOTE | 2018-10-29 09:24 | Diagnostic Imaging Report ---
INDICATION: Abnormal screening mammogram. COMPARISON: 10/09/2018 and 08/05/2017. TECHNIQUE: A true lateral view and spot compression views of the right breast were obtained. The current study was also evaluated with a Computer Aided Detection (CAD) system. FINDINGS: The previously described density appears to be attributable to superimposed fibroglandular tissue. There is no discrete mass, spiculated lesion, or suspicious calcification identified. IMPRESSION: Benign findings. ACR BI-RADS Category 2: Benign findings. Result letter will be mailed to the patient. Note: At least 10% of breast cancer is not imaged by mammography. Dictated by: Dictated on workstation # [id number]
== END ==
LOC: RAD 08:11
PROVIDERS: ATTEND Family Medicine
DX: R92.2 Inconclusive mammogram (principal)

== ENCOUNTER 2019-01-02 08:27 | Emergency (ER) | payer OTHER ==
[~2019-01-02] VITALS: Ht 160 cm; Wt 81.6 kg
[~2019-01-02 08:27] MED LIST changes: -AMLO10TA6 PO; +AMLO10TA7 PO
--- OUTSIDE RECORDS SUMMARY | 2019-01-02 08:33 | XMS REPORT | Continuity of Care Document ---
Author Author [facility] Organization [facility] Address Unknown Phone Unavailable Allergies Active Description Code Type Severity Reaction Onset Reported/Identified Relationship to Patient Clinical Status Yes codeine [id number] Drug Allergy Unknown N/A 12/08/2006 Yes Sulfa (Sulfonamide Antibiotics) [id number] Drug Allergy Unknown N/A 2006 Yes acetaminophen [id number] Drug Allergy Severe SOA, RASH 09/26/2011 Yes Erythromycin Lactobionate [id number] Drug Allergy Severe SOA, RASH 2010 Yes methocarbamol [id number] Drug Allergy Severe SOA, RASH 09/26/2011 Yes oxycodone HCl [id number] Drug Allergy Severe SOA, RASH 09/26/2011 Medications There is no data. 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 REMINGTON MUÑOZ APRN Ot S67.42XA CRUSHING INJURY OF LEFT WRIST AND HAND, REMINGTON MUÑOZ APRN Ot X58.XXXA EXPOSURE TO OTHER SPECIFIED FACTORS, INI REMINGTON MUÑOZ APRN Ot Y99.8 OTHER EXTERNAL CAUSE STATUS 10/16/1599 REMINGTON MUÑOZ APRN Ot I73.9 PERIPHERAL VASCULAR DISEASE, UNSPECIFIED 10/16/1599 REMINGTON MUÑOZ APRN Ot S67.42XD CRUSHING INJURY OF LEFT WRIST AND HAND, 09/26/2011 Ot 786.50 CHEST PAIN NOS 09/26/2011 Ot 786.52 PAINFUL RESPIRATION 04/28/2015 Ot 786.05 04/28/2015 Ot 793.19 04/28/2015 Ot 496 04/28/2015 Ot 793.82 04/28/2015 Ot V76.12 04/28/2015 Ot 793.80 04/28/2015 BELLO SEPULVEDA DO Ot 626.2 04/28/2015 GELLENDER DO, BELLO Biswas Ot 783.21 04/28/2015 GELLENDER DO, BELLO Biswas Ot 626.2 04/28/2015 GELLENDER DO, BELLO Biswas Ot 783.21 04/28/2015 GELLENDER DO, BELLO Biswas Ot 626.2 04/28/2015 GELLENDER DO, BELLO Biswas Ot V76.12 05/16/2015 GELLENDER DO, BELLO Biswas Ot V76.12 05/05/2016 Ot F17.210 NICOTINE DEPENDENCE, CIGARETTES, UNCOMPL 05/05/2016 Ot 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 05/09/2016 GELLENDER DO, BELLO Biswas Ot 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 05/10/2016 GELLENDER DO, BELLO Biswas Ot 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 05/17/2016 GELLENDER DO, BELLO Biswas Ot 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 05/29/2016 GELLENDER DO, BELLO Biswas Ot S69.92XA UNSP INJURY OF LEFT WRIST, HAND AND FING 05/29/2016 GELLENDER DO, BELLO Biswas Ot X58.XXXA EXPOSURE TO OTHER SPECIFIED FACTORS, INI 05/29/2016 GELLENDER DO, BELLO Biswas Ot Y99.8 OTHER EXTERNAL CAUSE STATUS 06/14/2016 GELLENDER DO, BELLO Biswas Ot S69.92XA UNSP INJURY OF LEFT WRIST, HAND AND FING 06/14/2016 GELLENDER DO, BELLO Biswas Ot X58.XXXA EXPOSURE TO OTHER SPECIFIED FACTORS, INI 06/14/2016 GELLENDER DO, BELLO Biswas Ot Y99.8 OTHER EXTERNAL CAUSE STATUS 06/26/2016 GELLENDER DO, BELLO Biswas Ot 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 06/26/2016 GELLENDER DO, BELLO Biswas Ot S69.92XA UNSP INJURY OF LEFT WRIST, HAND AND FING 06/26/2016 GELLENDER DO, BELLO Biswas Ot X58.XXXA EXPOSURE TO OTHER SPECIFIED FACTORS, INI 06/26/2016 GELLENDER DO, BELLO Biswas Ot Y99.8 OTHER EXTERNAL CAUSE STATUS 07/10/2016 GELLENDER DO, BELLO Biswas Ot 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 07/10/2016 GELLENDER DO, BELLO Biswas Ot S69.92XA UNSP INJURY OF LEFT WRIST, HAND AND FING 07/10/2016 GELLENDER DO, BELLO Biswas Ot X58.XXXA EXPOSURE TO OTHER SPECIFIED FACTORS, INI 07/10/2016 GELLENDER DO, BELLO Biswas Ot Y99.8 OTHER EXTERNAL CAUSE STATUS 07/10/2016 REMINGTON MUÑOZ APRN Ot 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 07/10/2016 REMINGTON MUÑOZ INDIAN BLANKET WEAVER Ot S67.42XA CRUSHING INJURY OF LEFT WRIST AND HAND, 07/10/2016 REMINGTON MUÑOZ APRN Ot X58.XXXA EXPOSURE TO OTHER SPECIFIED FACTORS, INI 07/10/2016 REMINGTON MUÑOZ APRN Ot Y99.8 OTHER EXTERNAL CAUSE STATUS 07/11/2016 GELLENDER DO, BELLO Biswas Ot 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 07/11/2016 GELLENDER DO, BELLO Biswas Ot S69.92XA UNSP INJURY OF LEFT WRIST, HAND AND FING 07/11/2016 GELLENDER DO, BELLO Biswas Ot X58.XXXA EXPOSURE TO OTHER SPECIFIED FACTORS, INI 07/11/2016 GELLENDER DO, BELLO Biswas Ot Y99.8 OTHER EXTERNAL CAUSE STATUS 07/11/2016 REMINGTON MUÑOZ APRN Ot 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 07/11/2016 REMINGTON MUÑOZ APRN Ot S67.42XA CRUSHING INJURY OF LEFT WRIST AND HAND, 07/11/2016 REMINGTON MUÑOZ APRN Ot X58.XXXA EXPOSURE TO OTHER SPECIFIED FACTORS, INI 07/11/2016 REMINGTON MUÑOZ INDIAN BLANKET WEAVER Ot Y99.8 OTHER EXTERNAL CAUSE STATUS 07/17/2016 GELLENDER DO, BELLO Biswas Ot 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 07/17/2016 GELLENDER DO, BELLO Biswas Ot S69.92XA UNSP INJURY OF LEFT WRIST, HAND AND FING 07/17/2016 GELLENDER DO, BELLO Biswas Ot X58.XXXA EXPOSURE TO OTHER SPECIFIED FACTORS, INI 07/17/2016 GELLENDER DO, BELLO Biswas Ot Y99.8 OTHER EXTERNAL CAUSE STATUS 07/17/2016 REMINGTON MUÑOZ APRN Ot 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 07/17/2016 REMINGTON MUÑOZ APRN Ot S67.42XA CRUSHING INJURY OF LEFT WRIST AND HAND, 07/17/2016 REMINGTON MUÑOZ APRN Ot X58.XXXA EXPOSURE TO OTHER SPECIFIED FACTORS, INI 07/17/2016 REMINGTON MUÑOZ APRN Ot Y99.8 OTHER EXTERNAL CAUSE STATUS 07/17/2016 REMINGTON MUÑOZ APRN Ot 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 07/17/2016 REMINGTON MUÑOZ APRN Ot S67.42XD CRUSHING INJURY OF LEFT WRIST AND HAND, 07/18/2016 LISY VIZCARRA MD Ot I10 ESSENTIAL (PRIMARY) HYPERTENSION 07/18/2016 LISY VIZCARRA MD Ot 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 07/18/2016 LISY VIZCARRA MD Ot I70.8 ATHEROSCLEROSIS OF OTHER ARTERIES 07/18/2016 LISY VIZCARRA MD Ot 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 07/18/2016 LISY VIZCARRA MD Ot J44.9 CHRONIC OBSTRUCTIVE PULMONARY DISEASE, U 07/18/2016 LISY VIZCARRA MD Ot 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 07/18/2016 LISY VIZCARRA MD Ot Z72.0 TOBACCO USE 07/18/2016 LISY VIZCARRA MD Ot Z79.899 OTHER HALFWAY (CURRENT) DRUG THERAPY 07/23/2016 REMINGTON MUÑOZ APRN Ot 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 07/23/2016 REMINGTON MUÑOZ APRN Ot S67.42XD CRUSHING INJURY OF LEFT WRIST AND HAND, 07/23/2016 BELLO SEPULVEDA DO Ot 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 07/23/2016 BELLO SEPULVEDA DO Ot S69.92XA UNSP INJURY OF LEFT WRIST, HAND AND FING 07/23/2016 BELLO SEPULVEDA DO Ot X58.XXXA EXPOSURE TO OTHER SPECIFIED FACTORS, INI 07/23/2016 BELLO SEPULVEDA DO Ot Y99.8 OTHER EXTERNAL CAUSE STATUS 07/23/2016 WANDA, REMINGTON R INDIAN BLANKET WEAVER Ot 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 07/23/2016 MACHELLE MUÑOZShayna Pham INDIAN BLANKET WEAVER Ot S67.42XA CRUSHING INJURY OF LEFT WRIST AND HAND, 07/23/2016 WANDA REMINGTON Pham INDIAN BLANKET WEAVER Ot X58.XXXA EXPOSURE TO OTHER SPECIFIED FACTORS, INI 07/23/2016 WANDA REMINGTON Pham INDIAN BLANKET WEAVER Ot Y99.8 OTHER EXTERNAL CAUSE STATUS 07/23/2016 WANDA REMINGTON Pham INDIAN BLANKET WEAVER Ot 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 07/23/2016 WANDA REMINGTON Pham INDIAN BLANKET WEAVER Ot S67.42XD CRUSHING INJURY OF LEFT WRIST AND HAND, 07/29/2016 WANDA REMINGTON Pham INDIAN BLANKET WEAVER Ot 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 07/29/2016 WANDA REMINGTON Pham INDIAN BLANKET WEAVER Ot S67.42XA CRUSHING INJURY OF LEFT WRIST AND HAND, 07/29/2016 WANDA REMINGTON Pham INDIAN BLANKET WEAVER Ot X58.XXXA EXPOSURE TO OTHER SPECIFIED FACTORS, INI 07/29/2016 REMINGTON MUÑOZ INDIAN BLANKET WEAVER Ot Y99.8 OTHER EXTERNAL CAUSE STATUS 07/30/2016 LISY VIZCARRA MD Ot I10 ESSENTIAL (PRIMARY) HYPERTENSION 07/30/2016 LISY VIZCARRA MD Ot I70.208 UNSP ATHSCL [place] ARTERIES OF [facility] 07/30/2016 LISY VIZCARRA MD Ot I70.8 ATHEROSCLEROSIS OF OTHER ARTERIES 07/30/2016 LISY VIZCARRA MD Ot 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 07/30/2016 LISY VIZCARRA MD Ot J44.9 CHRONIC OBSTRUCTIVE PULMONARY DISEASE, U 07/30/2016 LISY VIZCARRA MD Ot 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 07/30/2016 LISY VIZCARRA MD Ot Z72.0 TOBACCO USE 07/30/2016 LISY VIZCARRA MD Ot Z79.899 OTHER HALFWAY (CURRENT) DRUG THERAPY 08/08/2016 LISY VIZCARRA MD Ot I10 ESSENTIAL (PRIMARY) HYPERTENSION 08/08/2016 LISY VIZCARRA MD Ot I70.208 UNSP ATHSCL [place] ARTERIES OF [facility] 08/08/2016 LISY VIZCARRA MD Ot I70.8 ATHEROSCLEROSIS OF OTHER ARTERIES 08/08/2016 LISY VIZCARRA MD Ot 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 08/08/2016 LISY VIZCARRA MD, Ot J44.9 CHRONIC OBSTRUCTIVE PULMONARY DISEASE, U 08/08/2016 LISY VIZCARRA MD Ot 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 08/08/2016 LISY VIZCARRA MD Ot Z72.0 TOBACCO USE 08/08/2016 LISY VIZCARRA MD Ot Z79.899 OTHER HALFWAY (CURRENT) DRUG THERAPY 08/19/2016 BELLO SEPULVEDA DO Ot 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 08/19/2016 BELLO SEPULVEDA DO Ot S69.92XA UNSP INJURY OF LEFT WRIST, HAND AND FING 08/19/2016 TEDGLORY BELLO CONRAD Ot X58.XXXA EXPOSURE TO OTHER SPECIFIED FACTORS, INI 08/19/2016 BELLO SEPULVEDA DO Ot Y99.8 OTHER EXTERNAL CAUSE STATUS 08/19/2016 REMINGTON MUÑOZ APRN Ot 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 08/19/2016 REMINGTON MUÑOZ APRN Ot S67.42XA CRUSHING INJURY OF LEFT WRIST AND HAND, 08/19/2016 REMINGTON MUÑOZ APRN Ot X58.XXXA EXPOSURE TO OTHER SPECIFIED FACTORS, INI 08/19/2016 REMINGTON MUÑOZ APRN Ot Y99.8 OTHER EXTERNAL CAUSE STATUS 08/19/2016 REMINGTON MUÑOZ APRN Ot 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 08/19/2016 REMINGTON MUÑOZ APRN Ot S67.42XD CRUSHING INJURY OF LEFT WRIST AND HAND, 08/19/2016 REMINGTON MUÑOZ APRN Ot 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 08/19/2016 REMINGTON MUÑOZ APRN Ot S67.42XA CRUSHING INJURY OF LEFT WRIST AND HAND, 08/19/2016 REMINGTON MUÑOZ APRN Ot X58.XXXA EXPOSURE TO OTHER SPECIFIED FACTORS, INI 08/19/2016 REMINGTON MUÑOZ APRN Ot Y99.8 OTHER EXTERNAL CAUSE STATUS 09/20/2016 Ot 786.05 SHORTNESS OF BREATH 09/20/2016 Ot 793.19 OTHER NONSPECIFIC ABNORMAL FINDING OF NILES 09/20/2016 Ot 496 CHR AIRWAY OBSTRUCT NEC 09/20/2016 Ot 793.82 INCONCLUSIVE MAMMOGRAM 09/20/2016 Ot V76.12 OTH SCREEN MAMMO-MALIGN NEOPLASM OF NURYS 09/20/2016 Ot 793.80 UNSPEC ABNORMAL MAMMOGRAM 09/20/2016 COCO CONRAD, BELLO Biswas Ot 626.2 EXCESSIVE MENSTRUATION 09/20/2016 COCO CONRAD, BELLO Biswas Ot 783.21 LOSS OF WEIGHT 09/20/2016 COCO CONRAD, BELLO Biswas Ot 626.2 EXCESSIVE MENSTRUATION 09/20/2016 COCO CONRAD, BELLO Biswas Ot 783.21 LOSS OF WEIGHT 09/20/2016 COCO CONRAD, BELLO Biswas Ot 626.2 EXCESSIVE MENSTRUATION 09/20/2016 COCO CONRAD, BELLO Biswas Ot V76.12 OTH SCREEN MAMMO-MALIGN NEOPLASM OF NURYS 09/20/2016 BELLO SEPULVEDA DO Ot V76.12 OTH SCREEN MAMMO-MALIGN NEOPLASM OF NURYS 09/20/2016 COCO CONRAD, BELLO Biswas Ot S99.911A UNSPECIFIED INJURY OF RIGHT ANKLE, INITI 09/20/2016 COCO CONRAD BELLO Biswas Ot W19.XXXA UNSPECIFIED FALL, INITIAL ENCOUNTER 09/20/2016 COCO CONRAD BELLO Biswas Ot Y92.[address] [facility] [address] [facility] NON[facility] (PRIVATE 09/20/2016 BELLO SEPULVEDA DO Ot Y99.8 OTHER EXTERNAL CAUSE STATUS 09/20/2016 REMINGTON MUÑOZ APRN Ot I73.9 PERIPHERAL VASCULAR DISEASE, UNSPECIFIED 09/20/2016 REMINGTON MUÑOZ APRN Ot S67.42XD CRUSHING INJURY OF LEFT WRIST AND HAND, 09/20/2016 REMINGTON MUÑOZ APRN Ot 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 [facility] Ot S69.92XA UNSP INJURY OF LEFT WRIST, HAND AND FING 09/20/2016 [facility] Ot X58.XXXA EXPOSURE TO OTHER SPECIFIED FACTORS, INI 09/20/2016 COCO CONRADBELLO Ot Y99.8 OTHER EXTERNAL CAUSE STATUS 09/30/2016 REMINGTON MUÑOZ INDIAN BLANKET WEAVER Ot I73.9 PERIPHERAL VASCULAR DISEASE, UNSPECIFIED 09/30/2016 REMINGTON MUÑOZ INDIAN BLANKET WEAVER Ot S67.42XD CRUSHING INJURY OF LEFT WRIST AND HAND, 10/08/2016 REMINGTON MUÑOZ INDIAN BLANKET WEAVER Ot I73.9 PERIPHERAL VASCULAR DISEASE, UNSPECIFIED 10/08/2016 WANDA REMINGTON Pham INDIAN BLANKET WEAVER Ot S67.42XD CRUSHING INJURY OF LEFT WRIST AND HAND, 10/08/2016 REMINGTON MUOÑZ INDIAN BLANKET WEAVER Ot I73.9 PERIPHERAL VASCULAR DISEASE, UNSPECIFIED 10/08/2016 MACHELLE MUÑOZShayna Pham INDIAN BLANKET WEAVER Ot S67.42XD CRUSHING INJURY OF LEFT WRIST AND HAND, 12/04/2016 COCO BELLO CONRAD Ot 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 12/04/2016 REMINGTON MUÑOZ INDIAN BLANKET WEAVER Ot S67.42XD CRUSHING INJURY OF LEFT WRIST AND HAND, 12/05/2016 LISY VIZCARRA MD Ot I77.1 STRICTURE OF ARTERY 12/05/2016 LISY VIZCARRA MD Ot 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 12/05/2016 LISY VIZCARRA MD Ot M35.8 OTHER SPECIFIED SYSTEMIC INVOLVEMENT OF 12/05/2016 LISY VIZCARRA MD Ot Z72.0 TOBACCO USE 12/09/2016 LISY VIZCARRA MD Ot I73.9 PERIPHERAL VASCULAR DISEASE, UNSPECIFIED 12/09/2016 LISY VIZCARRA MD Ot I77.1 STRICTURE OF ARTERY 12/09/2016 LISY VIZCARRA MD Ot 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 12/09/2016 LISY VIZCARRA MD Ot M35.8 OTHER SPECIFIED SYSTEMIC INVOLVEMENT OF 12/09/2016 LISY VIZCARRA MD Ot R06.02 SHORTNESS OF BREATH 12/09/2016 LISY VIZCARRA MD Ot Z01.810 ENCOUNTER FOR PREPROCEDURAL CARDIOVASCUL 12/09/2016 LISY VIZCARRA MD Ot Z72.0 TOBACCO USE 12/10/2016 LISY VIZCARRA MD Ot I73.9 PERIPHERAL VASCULAR DISEASE, UNSPECIFIED 12/10/2016 LISY VIZCARRA MD Ot I77.1 STRICTURE OF ARTERY 12/10/2016 LISY VIZCARRA MD Ot 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 12/10/2016 LISY VIZCARRA MD Ot M35.8 OTHER SPECIFIED SYSTEMIC INVOLVEMENT OF 12/10/2016 LISY VIZCARRA MD Ot R06.02 SHORTNESS OF BREATH 12/10/2016 LISY VIZCARRA MD Ot Z01.810 ENCOUNTER FOR PREPROCEDURAL CARDIOVASCUL 12/10/2016 LISY VIZCARRA MD Ot Z72.0 TOBACCO USE 12/10/2016 LISY VIZCARRA MD Ot I73.9 PERIPHERAL VASCULAR DISEASE, UNSPECIFIED 12/10/2016 LISY VIZCARRA MD Ot I77.1 STRICTURE OF ARTERY 12/10/2016 LISY VIZCARRA MD Ot 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 12/10/2016 LISY VIZCARRA MD Ot M35.8 OTHER SPECIFIED SYSTEMIC INVOLVEMENT OF 12/10/2016 LISY VIZCARRA MD Ot R06.02 SHORTNESS OF BREATH 12/10/2016 LISY VIZCARRA MD Ot Z01.810 ENCOUNTER FOR PREPROCEDURAL CARDIOVASCUL 12/10/2016 LISY VIZCARRA MD Ot Z72.0 TOBACCO USE 12/12/2016 LISY VIZCARRA MD Ot I25.10 ATHSCL HEART DISEASE OF [place] CORONARY 12/12/2016 LISY VIZCARRA MD Ot I70.203 UNSP ATHSCL [place] ARTERIES OF [facility] 12/12/2016 LISY VIZCARRA MD Ot 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 12/12/2016 LISY VIZCARRA MD Ot 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 12/12/2016 LISY VIZCARRA MD Ot 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 12/12/2016 LISY VIZCARRA MD Ot R94.39 ABNORMAL RESULT OF OTHER CARDIOVASCULAR 12/12/2016 LISY VIZCARRA MD Ot Z72.0 TOBACCO USE 12/12/2016 LISY VIZCARRA MD Ot Z79.899 OTHER SAFETY SITTER (CURRENT) DRUG THERAPY 12/17/2016 LISY VIZCARRA MD Ot I77.1 STRICTURE OF ARTERY 12/17/2016 LISY VIZCARRA MD Ot 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 12/17/2016 LISY VIZCARRA MD Ot M35.8 OTHER SPECIFIED SYSTEMIC INVOLVEMENT OF 12/17/2016 LISY VIZCARRA MD Ot Z72.0 TOBACCO USE 12/24/2016 LISY VIZCARRA MD Ot I25.10 ATHSCL HEART DISEASE OF [place] CORONARY 12/24/2016 LISY VIZCARRA MD Ot I70.203 [facility] [place] ARTERIES OF [facility] 12/24/2016 LISY VIZCARRA MD Ot 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 12/24/2016 LISY VIZCARRA MD Ot 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 12/24/2016 LISY VIZCARRA MD Ot 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 12/24/2016 LISY VIZCARRA MD Ot R94.39 ABNORMAL RESULT OF OTHER CARDIOVASCULAR 12/24/2016 LISY VIZCARRA MD Ot Z72.0 TOBACCO USE 12/24/2016 LISY VIZCARRA MD Ot Z79.899 OTHER HALFWAY (CURRENT) DRUG THERAPY 12/26/2016 LISY VIZCARRA MD Ot I73.9 PERIPHERAL VASCULAR DISEASE, UNSPECIFIED 12/26/2016 LISY VIZCARRA MD Ot I77.1 STRICTURE OF ARTERY 12/26/2016 LISY VIZCARRA MD Ot 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 12/26/2016 LISY VIZCARRA MD Ot M35.8 OTHER SPECIFIED SYSTEMIC INVOLVEMENT OF 12/26/2016 LISY VIZCARRA MD Ot R06.02 SHORTNESS OF BREATH 12/26/2016 LISY VIZCARRA MD Ot Z01.810 ENCOUNTER FOR PREPROCEDURAL CARDIOVASCUL 12/26/2016 LISY VIZCARRA MD Ot Z72.0 TOBACCO USE 07/04/2017 BELLO SEPULVEDA DO Ot 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 07/04/2017 BELLO SEPULVEDA DO Ot S69.92XA UNSP INJURY OF LEFT WRIST, HAND AND FING 07/04/2017 BELLO SEPULVEDA DO Ot X58.XXXA EXPOSURE TO OTHER SPECIFIED FACTORS, INI 07/04/2017 BELLO SEPULVEDA DO Ot Y99.8 OTHER EXTERNAL CAUSE STATUS 07/04/2017 REMINGTON MUÑOZ INDIAN BLANKET WEAVER Ot 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 07/04/2017 REMINGTON MUÑOZ INDIAN BLANKET WEAVER Ot S67.42XD CRUSHING INJURY OF LEFT WRIST AND HAND, 07/04/2017 LISY VIZCARRA MD Ot I77.1 STRICTURE OF ARTERY 07/04/2017 LISY VIZCARRA MD Ot 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 07/04/2017 LISY VIZCARRA MD Ot M35.8 OTHER SPECIFIED SYSTEMIC INVOLVEMENT OF 07/04/2017 LISY VIZCARRA MD Ot Z72.0 TOBACCO USE 07/04/2017 LISY VIZCARRA MD Ot I73.9 PERIPHERAL VASCULAR DISEASE, UNSPECIFIED 07/04/2017 LISY VIZCARRA MD Ot I77.1 STRICTURE OF ARTERY 07/04/2017 LISY VIZCARRA MD Ot 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 07/04/2017 LISY VIZCARRA MD Ot M35.8 OTHER SPECIFIED SYSTEMIC INVOLVEMENT OF 07/04/2017 LISY VIZCARRA MD Ot R06.02 SHORTNESS OF BREATH 07/04/2017 LISY VIZCARRA MD, Ot Z01.810 ENCOUNTER FOR PREPROCEDURAL CARDIOVASCUL 07/04/2017 LISY VIZCARRA MD, Ot Z72.0 TOBACCO USE 07/09/2017 LISY VIZCARRA MD Ot I65.21 OCCLUSION AND STENOSIS OF RIGHT CAROTID 07/09/2017 LISY VIZCARRA MD Ot J43.9 EMPHYSEMA, UNSPECIFIED 07/09/2017 LISY VIZCARRA MD, Ot Z95.828 PRESENCE OF OTHER VASCULAR IMPLANTS AND 07/11/2017 GELBELLO JASON DO Ot 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 07/11/2017 BELLO SEPULVEDA DO Ot S69.92XA UNSP INJURY OF LEFT WRIST, HAND AND FING 07/11/2017 BELLO SEPULVEDA DO Ot X58.XXXA EXPOSURE TO OTHER SPECIFIED FACTORS, INI 07/11/2017 BELLO SEPULVEDA DO Ot Y99.8 OTHER EXTERNAL CAUSE STATUS 07/11/2017 REMINGTON MUÑOZ INDIAN BLANKET WEAVER Ot 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 07/11/2017 REMINGTON MUÑOZ INDIAN BLANKET WEAVER Ot S67.42XD CRUSHING INJURY OF LEFT WRIST AND HAND, 07/11/2017 LISY VIZCARRA MD Ot I77.1 STRICTURE OF ARTERY 07/11/2017 LISY VIZCARRA MD Ot 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 07/11/2017 LISY VIZCARRA MD Ot M35.8 OTHER SPECIFIED SYSTEMIC INVOLVEMENT OF 07/11/2017 LISY VIZCARRA MD, Ot Z72.0 TOBACCO USE 07/11/2017 LISY VIZCARRA MD Ot I73.9 PERIPHERAL VASCULAR DISEASE, UNSPECIFIED 07/11/2017 LISY VIZCARRA MD Ot I77.1 STRICTURE OF ARTERY 07/11/2017 LISY VIZCARRA MD Ot 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 07/11/2017 LISY VIZCARRA MD Ot M35.8 OTHER SPECIFIED SYSTEMIC INVOLVEMENT OF 07/11/2017 LISY VIZCARRA MD Ot R06.02 SHORTNESS OF BREATH 07/11/2017 LISY VIZCARRA MD, Ot Z01.810 ENCOUNTER FOR PREPROCEDURAL CARDIOVASCUL 07/11/2017 LISY VIZCARRA MD Ot Z72.0 TOBACCO USE 07/11/2017 LISY VIZCARRA MD Ot I65.21 OCCLUSION AND STENOSIS OF RIGHT CAROTID 07/11/2017 LISY VIZCARRA MD Ot J43.9 EMPHYSEMA, UNSPECIFIED 07/11/2017 LISY VIZCARRA MD Ot Z95.828 PRESENCE OF OTHER VASCULAR IMPLANTS AND 07/17/2017 GELLENDER DOBELLO Ot R91.8 OTHER NONSPECIFIC ABNORMAL FINDING OF NILES 07/23/2017 LISY VIZCARRA MD Ot I65.21 OCCLUSION AND STENOSIS OF RIGHT CAROTID 07/23/2017 LISY VIZCARRA MD, Ot J43.9 EMPHYSEMA, UNSPECIFIED 07/23/2017 LISY VIZCARRA MD Ot Z95.828 PRESENCE OF OTHER VASCULAR IMPLANTS AND 07/23/2017 GELLENDER DOBELLO Ot R91.8 OTHER NONSPECIFIC ABNORMAL FINDING OF NILES 07/31/2017 GELLENDER DOBELLO Ot R91.8 OTHER NONSPECIFIC ABNORMAL FINDING OF NILES 08/04/2017 [facility] DOBELLO Ot 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 08/04/2017 [facility] BELLO CONRAD Ot S69.92XA UNSP INJURY OF LEFT WRIST, HAND AND FING 08/04/2017 [facility] BELLO CONRAD Ot X58.XXXA EXPOSURE TO OTHER SPECIFIED FACTORS, INI 08/04/2017 [facility] CONRAD Ot Y99.8 OTHER EXTERNAL CAUSE STATUS 08/04/2017 [employer] MU[employer] Ot 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 08/04/2017 [employer] Ot S67.42XD CRUSHING INJURY OF LEFT WRIST AND HAND, 08/04/2017 LISY VIZCARRA MD Ot I77.1 STRICTURE OF ARTERY 08/04/2017 LISY VIZCARRA MD Ot 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 08/04/2017 LISY VIZCARRA MD Ot M35.8 OTHER SPECIFIED SYSTEMIC INVOLVEMENT OF 08/04/2017 LISY VIZCARRA MD Ot Z72.0 TOBACCO USE 08/04/2017 LISY VIZCARRA MD Ot I73.9 PERIPHERAL VASCULAR DISEASE, UNSPECIFIED 08/04/2017 LISY VIZCARRA MD Ot I77.1 STRICTURE OF ARTERY 08/04/2017 LISY VIZCARRA MD Ot 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 08/04/2017 LIYS VIZCARRA MD Ot M35.8 OTHER SPECIFIED SYSTEMIC INVOLVEMENT OF 08/04/2017 LISY VIZCARRA MD Ot R06.02 SHORTNESS OF BREATH 08/04/2017 LISY VIZCARRA MD, Ot Z01.810 ENCOUNTER FOR PREPROCEDURAL CARDIOVASCUL 08/04/2017 LISY VIZCARRA MD Ot Z72.0 TOBACCO USE 08/04/2017 LISY VIZCARRA MD Ot I65.21 OCCLUSION AND STENOSIS OF RIGHT CAROTID 08/04/2017 LISY VIZCARRA MD Ot J43.9 EMPHYSEMA, UNSPECIFIED 08/04/2017 LISY VIZCARRA MD Ot Z95.828 PRESENCE OF OTHER VASCULAR IMPLANTS AND 08/04/2017 GELLENDER DOBELLO Ot R91.8 OTHER NONSPECIFIC ABNORMAL FINDING OF NILES 08/04/2017 [facility] DOBELLO Ot Z12.31 ENCNTR SCREEN MAMMOGRAM FOR MALIGNANT NE 08/15/2017 GELLENDER DOBELLO Ot Z12.31 ENCNTR SCREEN MAMMOGRAM FOR MALIGNANT NE 08/26/2017 TEDDER BELLO CONRAD Ot R92.8 OTH ABN AND INCONCLUSIVE FINDINGS ON DX 10/02/2018 MALUBELLO JASON DO Ot 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 10/02/2018 BELLO SEPULVEDA DO Ot S69.92XA UNSP INJURY OF LEFT WRIST, HAND AND FING 10/02/2018 BELLO SEPULVEDA DO Ot X58.XXXA EXPOSURE TO OTHER SPECIFIED FACTORS, INI 10/02/2018 TEDDER BELLO CONRAD Ot Y99.8 OTHER EXTERNAL CAUSE STATUS 10/02/2018 [employer] MU[employer] Ot 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 10/02/2018 [employer] Ot S67.42XD CRUSHING INJURY OF LEFT WRIST AND HAND, 10/02/2018 LISY VIZCARRA MD Ot I77.1 STRICTURE OF ARTERY 10/02/2018 LISY VIZCARRA MD Ot 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 10/02/2018 LISY VIZCARRA MD Ot M35.8 OTHER SPECIFIED SYSTEMIC INVOLVEMENT OF 10/02/2018 LISY VIZCARRA MD Ot Z72.0 TOBACCO USE 10/02/2018 LISY VIZCARRA MD Ot I73.9 PERIPHERAL VASCULAR DISEASE, UNSPECIFIED 10/02/2018 LISY VIZCARRA MD Ot I77.1 STRICTURE OF ARTERY 10/02/2018 LISY VIZCARRA MD Ot 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 10/02/2018 LISY VIZCARRA MD Ot M35.8 OTHER SPECIFIED SYSTEMIC INVOLVEMENT OF 10/02/2018 LISY VIZCARRA MD Ot R06.02 SHORTNESS OF BREATH 10/02/2018 LISY VIZCARRA MD Ot Z01.810 ENCOUNTER FOR PREPROCEDURAL CARDIOVASCUL 10/02/2018 LISY VIZCARRA MD Ot Z72.0 TOBACCO USE 10/02/2018 LISY VIZCARRA MD Ot I65.21 OCCLUSION AND STENOSIS OF RIGHT CAROTID 10/02/2018 LISY VIZCARRA MD Ot J43.9 EMPHYSEMA, UNSPECIFIED 10/02/2018 LISY VIZCARRA MD Ot Z95.828 PRESENCE OF OTHER VASCULAR IMPLANTS AND 10/02/2018 GELNICKOLASDER BELLO CONRAD Ot R91.8 OTHER NONSPECIFIC ABNORMAL FINDING OF NILES 10/02/2018 BELLO SEPULVEDA DO Ot Z12.31 ENCNTR SCREEN MAMMOGRAM FOR MALIGNANT NE 10/02/2018 TEDGLORY BELLO CONRAD Ot R92.8 OTH ABN AND INCONCLUSIVE FINDINGS ON DX 10/05/2018 BELLO SEPULVEDA DO Ot 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 10/05/2018 BELLO SEPULVEDA DO Ot S69.92XA UNSP INJURY OF LEFT WRIST, HAND AND FING 10/05/2018 MALUNICKOLASGLORY BELLO CONRAD Ot X58.XXXA EXPOSURE TO OTHER SPECIFIED FACTORS, INI 10/05/2018 BELLO SEPULVEDA DO Ot Y99.8 OTHER EXTERNAL CAUSE STATUS 10/05/2018 REMINGTON MUÑOZ [employer] Ot 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 10/05/2018 REMINGTON MUÑOZ [employer] Ot S67.42XD CRUSHING INJURY OF LEFT WRIST AND HAND, 10/05/2018 LISY VIZCARRA MD Ot I77.1 STRICTURE OF ARTERY 10/05/2018 LISY VIZCARRA MD Ot 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 10/05/2018 LISY VIZCARRA MD Ot M35.8 OTHER SPECIFIED SYSTEMIC INVOLVEMENT OF 10/05/2018 LISY VIZCARRA MD Ot Z72.0 TOBACCO USE 10/05/2018 LISY VIZCARRA MD Ot I73.9 PERIPHERAL VASCULAR DISEASE, UNSPECIFIED 10/05/2018 LISY VIZCARRA MD Ot I77.1 STRICTURE OF ARTERY 10/05/2018 LISY VIZCARRA MD Ot 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 10/05/2018 LISY VIZCARRA MD Ot M35.8 OTHER SPECIFIED SYSTEMIC INVOLVEMENT OF 10/05/2018 LISY VIZCARRA MD Ot R06.02 SHORTNESS OF BREATH 10/05/2018 LISY VIZCARRA MD Ot Z01.810 ENCOUNTER FOR PREPROCEDURAL CARDIOVASCUL 10/05/2018 LISY VIZCARRA MD Ot Z72.0 TOBACCO USE 10/05/2018 LISY VIZCARRA MD Ot I65.21 OCCLUSION AND STENOSIS OF RIGHT CAROTID 10/05/2018 LISY VIZCARRA MD Ot J43.9 EMPHYSEMA, UNSPECIFIED 10/05/2018 LISY VIZCARRA MD Ot Z95.828 PRESENCE OF OTHER VASCULAR IMPLANTS AND 10/05/2018 GELLENDER DO, BELLO Biswas Ot R91.8 OTHER NONSPECIFIC ABNORMAL FINDING OF NILES 10/05/2018 GELLENDER DOBELLO Ot Z12.31 ENCNTR SCREEN MAMMOGRAM FOR MALIGNANT NE 10/05/2018 GELLENDER DO, BELLO Biswas Ot R92.8 OT ABN AND INCONCLUSIVE FINDINGS ON DX 10/07/2018 GELLENDER DO, BELLO Biswas Ot Z12.31 ENCNTR SCREEN MAMMOGRAM FOR MALIGNANT NE 10/12/2018 GELLENDER DO, BELLO Biswas Ot Z12.31 ENCNTR SCREEN MAMMOGRAM FOR MALIGNANT NE 10/30/2018 GELLENDER DO, BELLO Biswas Ot R92.2 INCONCLUSIVE MAMMOGRAM 11/19/2018 GELLENDER DO, BELLO Biswas Ot R92.2 INCONCLUSIVE MAMMOGRAM Procedures There is no data. Results Test Result Range Complete urinalysis with reflex to culture - 07/17/16 11:56 Urine color determination YELLOW NRG Urine clarity determination CLEAR NRG Urine pH measurement by test strip 7 5-9 Specific gravity of urine by test strip 1.010 1.016- 1.022 Urine protein assay by test strip, semi-quantitative NEGATIVE NEGATIVE Urine glucose detection by automated test strip NEGATIVE NEGATIVE Erythrocytes detection in urine sediment by light microscopy 4+ NEGATIVE Urine ketones detection by automated test strip NEGATIVE NEGATIVE Urine nitrite detection by test strip NEGATIVE NEGATIVE Urine total bilirubin detection by test strip NEGATIVE NEGATIVE Urine urobilinogen measurement by automated test strip (mass/volume) NORMAL NORMAL Urine leukocyte esterase detection by dipstick NEGATIVE NEGATIVE Automated urine sediment erythrocyte count by microscopy (number/high power field) [HPF] NRG Automated urine sediment leukocyte count by microscopy (number/high power field ) NONE NRG Bacteria detection in urine sediment by light microscopy TRACE NRG Squamous epithelial cells detection in urine sediment by light microscopy 2-5 NRG Crystals detection in urine sediment by light microscopy NONE NRG Casts detection in urine sediment by light microscopy NONE NRG Mucus detection in urine sediment by light microscopy NEGATIVE NRG Complete urinalysis with reflex to culture NO NRG Automated blood complete blood count (hemogram) panel - 07/17/16 12:00 Blood leukocytes automated count (number/volume) 11.5 10*3/uL 4.3-11.0 Blood erythrocytes automated count (number/volume) 4.65 10*6/uL 4.35-5.85 Venous blood hemoglobin measurement (mass/volume) 14.7 g/dL 11.5-16.0 Blood hematocrit (volume fraction) 45 % 35-52 Automated erythrocyte mean corpuscular volume 96 [foz_us] 80-99 Automated erythrocyte mean corpuscular hemoglobin (mass per erythrocyte) 32 pg 25-34 Automated erythrocyte mean corpuscular hemoglobin concentration measurement ( mass/volume) 33 g/dL 32-36 Automated erythrocyte distribution width ratio 13.5 % 10.0-14.5 Automated blood platelet count (count/volume) 397 10*3/uL 130-400 Automated blood platelet mean volume measurement 10.5 [foz_us] 7.4-10.4 PT panel in platelet poor plasma by coagulation assay - 07/17/16 12:00 Prothrombin time (PT) in platelet poor plasma by coagulation assay 12.5 s 12.2-14.7 INR in platelet poor plasma or blood by coagulation assay 1.0 0.8-1.4 Activated partial thromboplastin time (aPTT) in platelet poor plasma bycoagulation assay - 07/17/16 12:00 Activated partial thromboplastin time (aPTT) in platelet poor plasma bycoagulation assay 25 s 24-35 Comprehensive metabolic panel - 07/17/16 12:00 Serum or plasma sodium measurement (moles/volume) 138 mmol/L 135-145 Serum or plasma potassium measurement (moles/volume) 3.9 mmol/L 3.6-5.0 Serum or plasma chloride measurement (moles/volume) 108 mmol/L 98-107 Carbon dioxide 23 mmol/L 21-32 Serum or plasma anion gap determination (moles/volume) 7 mmol/L 5-14 Serum or plasma urea nitrogen measurement (mass/volume) 10 mg/dL 7-18 Serum or plasma creatinine measurement (mass/volume) 0.64 mg/dL 0.60-1.30 Serum or plasma urea nitrogen/creatinine mass ratio 16 NRG Serum or plasma creatinine measurement with calculation of estimated glomerular filtration rate > NRG Serum or plasma glucose measurement (mass/volume) 92 mg/dL 70-105 Serum or plasma calcium measurement (mass/volume) 9.2 mg/dL 8.5-10.1 Serum or plasma total bilirubin measurement (mass/volume) 0.5 mg/dL 0.1-1.0 Serum or plasma alkaline phosphatase measurement (enzymatic activity/volume) 72 U/L 40-136 Serum or plasma aspartate aminotransferase measurement (enzymatic activity/ volume) 16 U/L 5-34 Serum or plasma alanine aminotransferase measurement (enzymatic activity/volume ) 15 U/L 0-55 Serum or plasma protein measurement (mass/volume) 6.8 g/dL 6.4-8.2 Serum or plasma albumin measurement (mass/volume) 4.1 g/dL 3.2-4.5 Methicillin resistant Staphylococcus aureus (MRSA) screening culture - 12:00 Methicillin resistant Staphylococcus aureus (MRSA) screening culture NEG NRG Activated partial thromboplastin time (aPTT) in platelet poor plasma bycoagulation assay - 07/17/16 17:47 Activated partial thromboplastin time (aPTT) in platelet poor plasma bycoagulation assay 47 s 24-35 Complete blood count (CBC) with automated white blood cell (WBC) differential - 07/18/16 07:39 Blood leukocytes automated count (number/volume) 12.8 10*3/uL 4.3-11.0 Blood erythrocytes automated count (number/volume) 4.23 10*6/uL 4.35-5.85 Venous blood hemoglobin measurement (mass/volume) 13.7 g/dL 11.5-16.0 Blood hematocrit (volume fraction) 40 % 35-52 Automated erythrocyte mean corpuscular volume 96 [foz_us] 80-99 Automated erythrocyte mean corpuscular hemoglobin (mass per erythrocyte) 32 pg 25-34 Automated erythrocyte mean corpuscular hemoglobin concentration measurement ( mass/volume) 34 g/dL 32-36 Automated erythrocyte distribution width ratio 13.5 % 10.0-14.5 Automated blood platelet count (count/volume) 350 10*3/uL 130-400 Automated blood platelet mean volume measurement 10.6 [foz_us] 7.4-10.4 Automated blood neutrophils/100 leukocytes 80 % 42-75 Automated blood lymphocytes/100 leukocytes 15 % 12-44 Blood monocytes/100 leukocytes 3 % 0-12 Automated blood eosinophils/100 leukocytes 1 % 0-10 Automated blood basophils/100 leukocytes 1 % 0-10 Blood neutrophils automated count (number/volume) 10.2 10*3 1.8-7.8 Blood lymphocytes automated count (number/volume) 1.9 10*3 1.0-4.0 Blood monocytes automated count (number/volume) 0.4 10*3 0.0-1.0 Automated eosinophil count 0.2 10*3/uL 0.0-0.3 Automated blood basophil count (count/volume) 0.1 10*3/uL 0.0-0.1 Comprehensive metabolic panel - 07/18/16 07:39 Serum or plasma sodium measurement (moles/volume) 136 mmol/L 135-145 Serum or plasma potassium measurement (moles/volume) 3.8 mmol/L 3.6-5.0 Serum or plasma chloride measurement (moles/volume) 106 mmol/L 98-107 Carbon dioxide 19 mmol/L 21-32 Serum or plasma anion gap determination (moles/volume) 11 mmol/L 5-14 Serum or plasma urea nitrogen measurement (mass/volume) 8 mg/dL 7-18 Serum or plasma creatinine measurement (mass/volume) 0.70 mg/dL 0.60-1.30 Serum or plasma urea nitrogen/creatinine mass ratio 11 NRG Serum or plasma creatinine measurement with calculation of estimated glomerular filtration rate > NRG Serum or plasma glucose measurement (mass/volume) 165 mg/dL 70-105 Serum or plasma calcium measurement (mass/volume) 8.6 mg/dL 8.5-10.1 Serum or plasma total bilirubin measurement (mass/volume) 0.6 mg/dL 0.1-1.0 Serum or plasma alkaline phosphatase measurement (enzymatic activity/volume) 56 U/L 40-136 Serum or plasma aspartate aminotransferase measurement (enzymatic activity/ volume) 18 U/L 5-34 Serum or plasma alanine aminotransferase measurement (enzymatic activity/volume ) 17 U/L 0-55 Serum or plasma protein measurement (mass/volume) 6.2 g/dL 6.4-8.2 Serum or plasma albumin measurement (mass/volume) 3.6 g/dL 3.2-4.5 Automated blood complete blood count (hemogram) panel - 12/11/16 09:14 Blood leukocytes automated count (number/volume) 11.0 10*3/uL 4.3-11.0 Blood erythrocytes automated count (number/volume) 4.95 10*6/uL 4.35-5.85 Venous blood hemoglobin measurement (mass/volume) 15.0 g/dL 11.5-16.0 Blood hematocrit (volume fraction) 46 % 35-52 Automated erythrocyte mean corpuscular volume 93 [foz_us] 80-99 Automated erythrocyte mean corpuscular hemoglobin (mass per erythrocyte) 30 pg 25-34 Automated erythrocyte mean corpuscular hemoglobin concentration measurement ( mass/volume) 33 g/dL 32-36 Automated erythrocyte distribution width ratio 13.7 % 10.0-14.5 Automated blood platelet count (count/volume) 336 10*3/uL 130-400 Automated blood platelet mean volume measurement 11.0 [foz_us] 7.4-10.4 PT panel in platelet poor plasma by coagulation assay - 12/11/16 09:14 Prothrombin time (PT) in platelet poor plasma by coagulation assay 12.6 s 12.2-14.7 INR in platelet poor plasma or blood by coagulation assay 1.0 0.8-1.4 Activated partial thromboplastin time (aPTT) in platelet poor plasma bycoagulation assay - 12/11/16 09:14 Activated partial thromboplastin time (aPTT) in platelet poor plasma bycoagulation assay 25 s 24-35 Comprehensive metabolic panel - 12/11/16 09:14 Serum or plasma sodium measurement (moles/volume) 139 mmol/L 135-145 Serum or plasma potassium measurement (moles/volume) 3.6 mmol/L 3.6-5.0 Serum or plasma chloride measurement (moles/volume) 106 mmol/L 98-107 Carbon dioxide 24 mmol/L 21-32 Serum or plasma anion gap determination (moles/volume) 9 mmol/L 5-14 Serum or plasma urea nitrogen measurement (mass/volume) 10 mg/dL 7-18 Serum or plasma creatinine measurement (mass/volume) 0.75 mg/dL 0.60-1.30 Serum or plasma urea nitrogen/creatinine mass ratio 13 NRG Serum or plasma creatinine measurement with calculation of estimated glomerular filtration rate > NRG Serum or plasma glucose measurement (mass/volume) 89 mg/dL 70-105 Serum or plasma calcium measurement (mass/volume) 9.0 mg/dL 8.5-10.1 Serum or plasma total bilirubin measurement (mass/volume) 0.5 mg/dL 0.1-1.0 Serum or plasma alkaline phosphatase measurement (enzymatic activity/volume) 66 U/L 40-136 Serum or plasma aspartate aminotransferase measurement (enzymatic activity/ volume) 14 U/L 5-34 Serum or plasma alanine aminotransferase measurement (enzymatic activity/volume ) 15 U/L 0-55 Serum or plasma protein measurement (mass/volume) 6.9 g/dL 6.4-8.2 Serum or plasma albumin measurement (mass/volume) 4.3 g/dL 3.2-4.5 Lipid 1996 panel - 12/11/16 09:14 Serum or plasma triglyceride measurement (mass/volume) 146 mg/dL <150 Serum or plasma cholesterol measurement (mass/volume) 209 mg/dL < 200 Serum or plasma cholesterol in HDL measurement (mass/volume) 40 mg/ dL 40-60 Cholesterol in LDL [mass/volume] in serum or plasma by direct assay 162 mg/dL 1-129 Serum or plasma cholesterol in VLDL measurement (mass/volume) 29 mg/ dL 5-40 Complete urinalysis with reflex to culture - 12/11/16 09:14 Urine color determination YELLOW NRG Urine clarity determination CLEAR NRG Urine pH measurement by test strip 6.5 5-9 Specific gravity of urine by test strip 1.010 1.016- 1.022 Urine protein assay by test strip, semi-quantitative NEGATIVE NEGATIVE Urine glucose detection by automated test strip NEGATIVE NEGATIVE Erythrocytes detection in urine sediment by light microscopy 2+ NEGATIVE Urine ketones detection by automated test strip NEGATIVE NEGATIVE Urine nitrite detection by test strip NEGATIVE NEGATIVE Urine total bilirubin detection by test strip NEGATIVE NEGATIVE Urine urobilinogen measurement by automated test strip (mass/volume) NORMAL NORMAL Urine leukocyte esterase detection by dipstick NEGATIVE NEGATIVE Automated urine sediment erythrocyte count by microscopy (number/high power field) [HPF] NRG Automated urine sediment leukocyte count by microscopy (number/high power field ) NONE NRG Bacteria detection in urine sediment by light microscopy NEGATIVE NRG Squamous epithelial cells detection in urine sediment by light microscopy 2-5 NRG Crystals detection in urine sediment by light microscopy NONE NRG Casts detection in urine sediment by light microscopy NONE NRG Mucus detection in urine sediment by light microscopy NEGATIVE NRG Complete urinalysis with reflex to culture NO NRG Methicillin resistant Staphylococcus aureus (MRSA) screening culture - 09:14 Methicillin resistant Staphylococcus aureus (MRSA) screening culture NEG NRG Automated blood complete blood count (hemogram) panel - 12/12/16 04:38 Blood leukocytes automated count (number/volume) 13.2 10*3/uL 4.3-11.0 Blood erythrocytes automated count (number/volume) 4.76 10*6/uL 4.35-5.85 Venous blood hemoglobin measurement (mass/volume) 14.2 g/dL 11.5-16.0 Blood hematocrit (volume fraction) 44 % 35-52 Automated erythrocyte mean corpuscular volume 93 [foz_us] 80-99 Automated erythrocyte mean corpuscular hemoglobin (mass per erythrocyte) 30 pg 25-34 Automated erythrocyte mean corpuscular hemoglobin concentration measurement ( mass/volume) 32 g/dL 32-36 Automated erythrocyte distribution width ratio 13.8 % 10.0-14.5 Automated blood platelet count (count/volume) 337 10*3/uL 130-400 Automated blood platelet mean volume measurement 11.0 [foz_us] 7.4-10.4 Whole blood basic metabolic panel - 12/12/16 04:38 Serum or plasma sodium measurement (moles/volume) 137 mmol/L 135-145 Serum or plasma potassium measurement (moles/volume) 3.5 mmol/L 3.6-5.0 Serum or plasma chloride measurement (moles/volume) 105 mmol/L 98-107 Carbon dioxide 23 mmol/L 21-32 Serum or plasma anion gap determination (moles/volume) 9 mmol/L 5-14 Serum or plasma urea nitrogen measurement (mass/volume) 6 mg/dL 7-18 Serum or plasma creatinine measurement (mass/volume) 0.74 mg/dL 0.60-1.30 Serum or plasma urea nitrogen/creatinine mass ratio 8 NRG Serum or plasma creatinine measurement with calculation of estimated glomerular filtration rate > NRG Serum or plasma glucose measurement (mass/volume) 87 mg/dL 70-105 Serum or plasma calcium measurement (mass/volume) 8.9 mg/dL 8.5-10.1 Encounters ACCT No. Visit Date/Time Discharge Status Pt. Type Provider Facility Loc./Unit Complaint [id number] 10/29/2018 08:11:00 10/29/2018 23:59:59 CLS Outpatient BELLO SEPULVEDA DO [facility] RAD ABN MAMMO [id number] 10/06/2018 07:09:00 10/06/2018 23:59:59 CLS Outpatient BELLO SEPULVEDA DO [facility] RAD SCREENING [id number] 08/14/2017 07:41:00 08/14/2017 23:59:59 CLS Outpatient BELLO SEPULVEDA DO [facility] RAD ABN MAMMO [id number] 08/04/2017 07:23:00 08/04/2017 23:59:59 CLS Outpatient BELLO SEPULVEDA DO [facility] RAD YEARLY MAMMOGRAM [id number] 07/16/2017 15:58:00 07/16/2017 23:59:59 CLS Outpatient BELLO SEPULVEDA DO [facility] RAD COPD [id number] 07/08/2017 07:50:00 07/08/2017 23:59:59 CLS Outpatient LISY VIZCARRA MD [facility] RAD CAROTID STENOSIS [id number] 12/11/2016 07:45:00 12/12/2016 09:05:00 DIS Outpatient LISY VIZCARRA MD [facility] CATH PAD,HTN,TOBACCOISM,SOB [id number] 12/09/2016 07:26:00 12/09/2016 23:59:59 CLS Outpatient LISY VIZCARRA MD [facility] CARD SOB,CAD,PAD [id number] 12/04/2016 07:36:00 12/04/2016 23:59:59 CLS Outpatient LISY VIZCARRA MD [facility] CARD SOB, CAD, PAD [id number] 10/08/2016 15:12:00 10/08/2016 16:00:00 DIS Outpatient REMINGTON MUÑOZ [employer] [facility] WOUNDCARE [id number] 08/08/2016 15:08:00 08/19/2016 09:17:00 DIS Outpatient REMINGTON MUÑOZ [employer] [facility] WOUNDCARE [id number] 07/17/2016 11:30:00 07/18/2016 09:30:00 DIS Outpatient LISY VIZCARRA MD [facility] CATH SUBCLAVIAN STENOSIS,HTN, TOBACCOISM [id number] 07/10/2016 16:47:00 07/10/2016 23:59:59 CLS Outpatient REMINGTON MUÑOZ APRN [facility] 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,RAYNAUD'S SYNDROME [id number] 05/27/2016 16:32:00 05/27/2016 23:59:59 CLS Outpatient BELLO SEPULVEDA DO [facility] RAD TRAUMA TO TIP TO LEFT DISTAL FINGER [id number] 05/06/2016 17:07:00 05/06/2016 23:59:59 CLS Outpatient BELLO SEPULVEDA DO [facility] LAB RAYNAUDS PHENOMENON [id number] 09/18/2015 16:04:00 09/18/2015 23:59:59 CLS Outpatient BELLO SEPULVEDA DO [facility] RAD HURT RT ANKLE 8 DAYS OR MORE [id number] 04/28/2015 14:19:00 04/28/2015 23:59:59 CLS Outpatient BELLO SEPULVEDA DO [facility] RAD SCREENING [id number] 04/27/2014 06:51:00 04/27/2014 23:59:59 CLS Outpatient BELLO SEPULVEDA DO [facility] RAD ROUTINE [id number] 04/19/2013 14:40:00 04/19/2013 23:59:59 CLS Outpatient BELLO SEPULVEDA DO [facility] RAD ABNORMAL ULTRASOUND, LONG PERIODS, CRAMPING [id number] 04/15/2013 09:08:00 04/15/2013 23:59:59 CLS Outpatient BELLO SEPULVEDA DO [facility] RAD HEAVY LONG PERIODS, WEIGHT LOSS [id number] 04/14/2013 13:51:00 04/14/2013 23:59:59 CLS Outpatient BELLO SEPULVEDA DO [facility] RAD HEAVY LONG PERIODS, WEIGHT LOSS [id number] 01/19/2019 11:00:00 PEN Preadmit CHRISTOPHERSTAR GREEN DO [facility] ENDO + COLOGUARD [id number] 05/05/2016 21:03:00 Document Registration [id number] 02/15/2013 13:38:00 Document Registration [id number] 01/21/2013 09:45:00 Document Registration [id number] 10/23/2011 11:33:00 Document Registration [id number] 10/08/2011 07:44:00 Document Registration [id number] 09/26/2011 11:31:00 Document Registration
[2019-01-02] MEDS ORDERED: ASPIRIN 81 MG CHEW (CHILDREN'S ASA) PO ONE (09:00)
[2019-01-02] MEDS ORDERED: KETOROLAC 30 MG/ML VIAL IVP ONE (09:00)
[2019-01-02 09:03] LABS: BASOPHILS # (AUTO) 0.1 10^3/uL (0.0-0.1); BASOPHILS % (AUTO) 1 % (0-10); EOSINOPHILS # (AUTO) 0.2 10^3/uL (0.0-0.3); EOSINOPHILS % (AUTO) 2 % (0-10); HEMATOCRIT 41 % (35-52); HEMOGLOBIN 12.9 G/DL (11.5-16.0); LYMPHOCYTES # (AUTO) 2.6 X 10^3 (1.0-4.0); LYMPHOCYTES % (AUTO) 24 % (12-44); MEAN CORPUSCULAR HEMOGLOBIN 30 PG (25-34); MEAN CORPUSCULAR HGB CONC 32 G/DL (32-36); MEAN CORPUSCULAR VOLUME 96 FL (80-99); MONOCYTES # (AUTO) 0.6 X 10^3 (0.0-1.0); MONOCYTES % (AUTO) 5 % (0-12); NEUTROPHILS # (AUTO) 7.5 X 10^3 (1.8-7.8); NEUTROPHILS % (AUTO) 69 % (42-75); PLATELET COUNT 347 10^3/uL (130-400); RED CELL DISTRIBUTION WIDTH 13.5 % (10.0-14.5); WHITE BLOOD COUNT 10.9 10^3/uL (4.3-11.0)
[2019-01-02 09:17] LABS: ALANINE AMINOTRANSFERASE 16 U/L (0-55); ALBUMIN 4.4 GM/DL (3.2-4.5); ALKALINE PHOSPHATASE 54 U/L (40-136); BILIRUBIN,TOTAL 0.4 MG/DL (0.1-1.0); BUN/CREATININE RATIO 18; CALCIUM 9.2 MG/DL (8.5-10.1); CARBON DIOXIDE 21 MMOL/L (21-32); CHLORIDE 106 MMOL/L (98-107); CREATININE SERUM 0.82 MG/DL (0.60-1.30); GFR ESTIMATED > 60; GLUCOSE 102 MG/DL (70-105); MAGNESIUM 2.1 MG/DL (1.8-2.4); POTASSIUM 3.7 MMOL/L (3.6-5.0); SODIUM 138 MMOL/L (135-145); TOTAL PROTEIN 7.3 GM/DL (6.4-8.2)
[2019-01-02 09:24] LABS: MYOGLOBIN SERUM 30.2 NG/ML (10.0-92.0)
--- NOTE | 2019-01-02 09:41 | Diagnostic Imaging Report ---
INDICATION: Left chest pain. History of COPD. TB. Upright chest shows normal heart size and vascularity. There is apical scarring on the right. No mass or alveolar infiltrate is seen. There is no effusion or pneumothorax. IMPRESSION: No acute abnormality is seen. The chest is similar to a prior study from 12/11/2016. Dictated by: Dictated on workstation # [id number]
--- NOTE | 2019-01-02 09:45 | ED Chest Pain ---
General Chief Complaint: Chest Wall/Rib Pain Stated Complaint: SHOULDER/NECK/MOUTH PAIN Nursing Triage Note: AMB TO ROOM REPORTS 8AM TODAY ONSET PAIN IN L SHOULDR SCAPULA WITH RADIATIN TO NECK AND TEETH. Nursing Sepsis Screen: No Definite Risk Source: patient Exam Limitations: no limitations History of Present Illness Date Seen by Provider: Jan 11, 2019 Time Seen by Provider: 08:32 Initial Comments This 48-year-old woman presents to the emergency room with pain in the left shoulder that radiates up to her neck and teeth that started around 08:00. Patient has history of a subclavian and lower extremity stent. She also has some dental pain. Pain seems constant and is a little worse with turning her head to the left. Pain on arrival was [address] 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 Sepulveda a primary care provider. Allergies and Home Medications Allergies Coded Allergies: Erythromycin Lactobionate (Unverified Allergy, Severe, SOA, RASH, 09/26/11 ) acetaminophen (Unverified Allergy, Severe, SOA, RASH, 09/26/11) methocarbamol (Unverified Allergy, Severe, SOA, RASH, 09/26/11) oxycodone HCl (Unverified Allergy, Severe, SOA, RASH, 09/26/11) Sulfa (Sulfonamide Antibiotics) (Verified Allergy, Unknown, 12/08/06) codeine (Verified Allergy, Unknown, 12/08/06) Home Medications Acetaminophen 500 Mg Tablet, 1,000 MG PO Q6H PRN for HEADACHE, (Reported) Aspirin 81 Mg Tablet.dr, 81 MG PO DAILY, (Reported) Atorvastatin Calcium 20 Mg Tablet, 20 MG PO HS Prescribed by: LISY ASIF on 12/12/16 0800 Budesonide/Formoterol Fumarate 10.2 Gm Hfa.aer.ad, 1 PUFF IH DAILY, (Reported) Clopidogrel Bisulfate 75 Mg Tablet, 75 MG PO DAILY, (Reported) Meclizine HCl 25 Mg Tablet, 25 MG PO TID, (Reported) [place] 3 Polyunsat Fatty Acids 1,000 Mg Cap, 1,000 MG PO BID WITH MEALS Prescribed by: LISY ASIF on 12/12/16 0800 Pantoprazole Sodium 40 Mg Tablet.dr, 40 MG PO DAILY, (Reported) Tiotropium [place] 4 Gm Mist.inhal, 2 PUFF IH DAILY, (Reported) Patient Home Medication List Home Medication List Reviewed: Yes Review of Systems Review of Systems Constitutional: no symptoms reported EENTM: See HPI Respiratory: No Symptoms Reported Cardiovascular: See HPI Gastrointestinal: No Symptoms Reported Genitourinary: No Symptoms Reported Musculoskeletal: see HPI Skin: no symptoms reported Psychiatric/Neurological: No Symptoms Reported Endocrine: No Symptoms Reported Hematologic/Lymphatic: No Symptoms Reported Past Nsyyepw-Wlwrya-Jjdcyk Hx Past Med/Social Hx: Reviewed and Corrections made Patient Social History Alcohol Use: Denies Use Recreational Drug Use: No Smoking Status: Former Smoker Type Used: Cigarettes Recent Foreign Travel: No Contact w/Someone Who Travel: No Recent Infectious Disease Expo: No Immunizations Up To Date Date of Influenza Vaccine: Aug 28, 2016 Past Medical History Surgeries: Yes Cardiac (Angiography 2016), Tonsillectomy, Tubal Ligation, Vascular Surgery ( Subclavian and lower extremity arterial stenting) Respiratory: Yes COPD Cardiac: Yes Coronary Artery Disease, Peripheral Vascular (In the extremities and carotid arteries) Neurological: No (vertigo) : No 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 1.0oz. 81.457409bu; 28.7 BMI Method:Stated General Appearance: No Apparent Distress, WD/WN HEENT: PERRL/EOMI, Normal ENT Inspection Neck: Normal Inspection, Other (Tenderness over the left sternocleidomastoid muscle) Respiratory: Lungs Clear, Normal Breath Sounds, No Accessory Muscle Use, No Respiratory Distress Cardiovascular: Regular Rate, Rhythm, No Edema, No Murmur Gastrointestinal: Normal Bowel Sounds, Non Tender, Soft Extremity: Normal Inspection, No Pedal Edema Neurologic/Psychiatric: Alert, Oriented x3, No Motor/Sensory Deficits, Normal Mood/Affect, hat lacer II-XII Norm as Tested Skin: Normal Color, Warm/Dry Progress/Results/Core Measures Results/Orders Lab Results Laboratory Tests Test 01/02/19 08:50 01/02/19 14:07 Range/Units White Blood Count 10.9 4.3-11.0 10^3/uL Red Blood Count 4.26 L 4.35-5.85 10^6/uL Hemoglobin 12.9 11.5-16.0 G/DL Hematocrit 41 35-52 % Mean Corpuscular Volume 96 80-99 FL Mean Corpuscular Hemoglobin 30 25-34 PG Mean Corpuscular Hemoglobin Concent 32 32-36 G/DL Red Cell Distribution Width 13.5 10.0-14.5 % Platelet Count 347 130-400 10^3/uL Mean Platelet Volume 11.0 H 7.4-10.4 FL Neutrophils (%) (Auto) 69 42-75 % Lymphocytes (%) (Auto) 24 12-44 % Monocytes (%) (Auto) 5 0-12 % Eosinophils (%) (Auto) 2 0-10 % Basophils (%) (Auto) 1 0-10 % Neutrophils # (Auto) 7.5 1.8-7.8 X 10^3 Lymphocytes # (Auto) 2.6 1.0-4.0 X 10^3 Monocytes # (Auto) 0.6 0.0-1.0 X 10^3 Eosinophils # (Auto) 0.2 0.0-0.3 10^3/uL Basophils # (Auto) 0.1 0.0-0.1 10^3/uL Prothrombin Time 12.6 12.2-14.7 SEC INR Comment 0.9 0.8-1.4 Activated Partial Thromboplast Time 25 24-35 SEC D-Dimer <= 0.27 0.00-0.49 UG/ML Sodium Level 138 135-145 MMOL/L Potassium Level 3.7 3.6-5.0 MMOL/L Chloride Level 106 98-107 MMOL/L Carbon Dioxide Level 21 21-32 MMOL/L Anion Gap 11 5-14 MMOL/L Blood Urea Nitrogen 15 7-18 MG/DL Creatinine 0.82 0.60-1.30 MG/DL Estimat Glomerular Filtration Rate > 60 BUN/Creatinine Ratio 18 Glucose Level 102 70-105 MG/DL Calcium Level 9.2 8.5-10.1 MG/DL Corrected Calcium 8.9 8.5-10.1 MG/DL Magnesium Level 2.1 1.8-2.4 MG/DL Total Bilirubin 0.4 0.1-1.0 MG/DL Aspartate Amino Transf (AST/SGOT) 21 5-34 U/L Alanine Aminotransferase (ALT/SGPT) 16 0-55 U/L Alkaline Phosphatase 54 40-136 U/L Myoglobin 30.2 10.0-92.0 NG/ML Troponin I < 0.028 < 0.028 <0.028 NG/ML Total Protein 7.3 6.4-8.2 GM/DL Albumin 4.4 3.2-4.5 GM/DL My Orders Orders - ZARINA COOK MD Ekg Tracing (01/02/19 08:33) Cbc With Automated Diff (01/02/19 08:56) Magnesium (01/02/19 08:56) Chest 1 View, Ap/Pa Only (01/02/19 08:56) Cardiac Profile 1 (01/02/19 08:56) Comprehensive Metabolic Panel (01/02/19 08:56) Myoglobin Serum (01/02/19 08:56) Protime With Inr (01/02/19 08:56) Partial Thromboplastin Time (01/02/19 08:56) O2 (01/02/19 08:56) Monitor-Rhythm Ecg Trace Only (01/02/19 08:56) Aspirin Chewable Tablet (Baby Aspirin Ch (01/02/19 09:00) Saline Lock/Iv-Start (01/02/19 08:56) Ketorolac Injection (Toradol Injection) (01/02/19 09:00) Fibrin Degradation Products (01/02/19 08:50) Troponin I (01/02/19 14:00) Heart Healthy (01/02/19 Breakfast) Iv 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 Pain did improve. Troponin and EKG were negative. A repeat troponin at 6 hours was drawn and EKG repeated. They were also negative. Case was discussed with Dr. Celis who requested 6 hour rule out. Patient was ultimately discharged in stable condition. Initial ECG Impression Date: Jan 02, 2019 Initial ECG Impression Time: 08:31 Initial ECG Rate: 98 Comment Sinus rhythm with no ST elevation or depression. No abnormal rhythms or axis deviation. Borderline tachycardia. EKG : EKG Time: 13:55 Rhythm: Normal Sinus Intervals: Normal ECG Impression: Normal Comment Normal sinus rhythm with no ST elevation or depression. No abnormal intervals or axis deviation. Diagnostic Imaging Diagonstic Imaging: Xray Plain Films/CT/US/NM/MRI: chest Comments Chest x-ray viewed by me and report reviewed. See report below: NAME: ELANA PRECIADO [facility] REC#: [id number] PT STATUS: REG ER : 1970 PHYSICIAN: ZARINA COOK MD ADMIT DATE: 01/02/19/ER Draft Date of Exam:01/02/19 CHEST 1 VIEW, AP/PA ONLY INDICATION: Left chest pain. History of COPD. TB. Upright chest shows normal heart size and vascularity. There is apical scarring on the right. No mass or alveolar infiltrate is seen. There is no effusion or pneumothorax. IMPRESSION: No acute abnormality is seen. The chest is similar to a prior study from 12/11/2016. Dictated on workstation # [id number] Dict: 01/02/19 0935 Trans: 01/02/19 0941 PENDING SALE TO [facility] [id number] Interpreted by: MARIAMA CEBALLOS MD Departure Impression Primary Impression: Neck pain on left side Additional Impression: Left shoulder pain Qualified Codes: M25.512 - Pain in left shoulder Disposition: HOME, SELF-CARE Condition: Improved Departure-Patient Inst. Referrals: BELLO SEPULVEDA DO (PCP/Family) Primary Care Physician ZARINA COOK MD Jan 02, 2019 09:45
[2019-01-02 09:59] LABS: FIBRIN DEGRADATION PRODUCTS <= 0.27 UG/ML (0.00-0.49); INR 0.9 (0.8-1.4); PARTIAL THROMBOPLASTIN TIME 25 SEC (24-35); PROTHROMBIN TIME PATIENT 12.6 SEC (12.2-14.7)
--- NOTE | 2019-01-02 10:34 | NUR ---
PATIENT INFORMED THAT WILL DO 6HR TROPONIN AT 2 PM MENU GIVEN TO ORDER FOOD.
--- NOTE | 2019-01-02 14:00 | NUR ---
2ND TROPOIN DRAWN AND EKG
[2019-01-02 15:29] VITALS: BP 135/73
== END 2019-01-02 15:29 | disposition home or self-care (01) ==
LOC: EDUNIT# 08:27 → ER 08:29
DX: M54.2 Cervicalgia (principal); M25.512 Pain in left shoulder; R07.89 Other chest pain; J44.9 Chronic obstructive pulmonary disease, unspecified; I25.10 Atherosclerotic heart disease of native coronary artery without angina pectoris; I73.9 Peripheral vascular disease, unspecified; Z88.2 Allergy status to sulfonamides; Z88.5 Allergy status to narcotic agent; Z88.8 Allergy status to other drugs, medicaments and biological substances; Z88.1 Allergy status to other antibiotic agents; Z79.82 Long term (current) use of aspirin; Z79.02 Long term (current) use of antithrombotics/antiplatelets; Z87.891 Personal history of nicotine dependence; Z98.51 Tubal ligation status; Z90.89 Acquired absence of other organs; Z98.890 Other specified postprocedural states
CPT/HCPCS: 36415; 71045; 80053; 83735; 83874; 84484; 85025; 85379; 85610; 85730; 93005; 93041; 96374

== ENCOUNTER → 2019-01-06 | Outpatient (CLI) | payer OTHER ==
[~2019-01-06] MED LIST changes: +CATHETER FLUSH 10 ML SYR IV PRN; +REGADENOSON 0.4 MG/5 ML SYR (LEXISCAN) IV ONE
[2019-01-06 09:37] VITALS: BP 140/81
[2019-01-06 09:40] VITALS: BP 133/75
--- NOTE | 2019-01-06 16:10 | STRESS TEST ---
DATE OF SERVICE: 01/06/2019 LEXISCAN MYOVIEW STRESS TEST REPORT REFERRING PHYSICIAN: Cheikh Leung DO. Baseline heart rate is 78. Baseline blood pressure is 121/75. Baseline EKG is sinus rhythm with no ischemic changes. In summary, the patient was injected with 10.92 mCi of technetium-99 Myoview and the resting images were obtained. Then, the patient received 0.4 mg of Lexiscan followed by 30.4 mCi of technetium-99 Myoview. Throughout the test, there were no EKG changes. The resting and stress images were reviewed and compared in the short axis, horizontal long axis, and vertical long axis views. Review of the images showed good radiotracer uptake with no significant ischemia or infarction. SSS is 0. TID value 1.08. On the gated images, the left ventricle appeared to be in normal size with normal contractility. Calculated ejection fraction is 60%. CONCLUSION: 1. The patient tolerated Lexiscan well. 2. No ischemia or infarction on SPECT images. 3. Normal left ventricular size with normal contractility. Calculated ejection fraction is 60%. Job ID: [id number] DocumentID: [id number] Dictated Date: 01/06/2019 15:30:42 Director Physical Date: 01/06/2019 16:09:27 Dictated By: LISY VIZCARRA MD
== END ==
LOC: CARD 07:57
PROVIDERS: ATTEND Physician Assistant
DX: I25.10 Atherosclerotic heart disease of native coronary artery without angina pectoris (principal); I10 Essential (primary) hypertension; I77.1 Stricture of artery; Z72.0 Tobacco use
CPT/HCPCS: 78452; 93017

== ENCOUNTER 2019-01-12 05:33 | Outpatient (CLI) | payer OTHER ==
[~2019-01-12] VITALS: Ht 167.6 cm; Wt 80.7 kg
[~2019-01-12 05:33] MED LIST changes: -CATHETER FLUSH 10 ML SYR IV PRN; -REGADENOSON 0.4 MG/5 ML SYR (LEXISCAN) IV ONE
[2019-01-12] MEDS ORDERED: ATOR20TA66 PO (15:29)
[2019-01-12] MEDS ORDERED: OMG1KC PO (15:29)
[2019-01-12] MEDS ORDERED: LORA10TA7 PO (15:29)
[2019-01-12] MEDS ORDERED: CYCL10TA9 PO (15:29)
[2019-01-12] MEDS ORDERED: LISI-556 PO (15:29)
[2019-01-12] MEDS ORDERED: AMLO10TA7 PO (15:30)
== END 2019-01-12 15:38 ==
LOC: PREOP 05:33
PROVIDERS: ATTEND Surgery
DX: Z01.818 Encounter for other preprocedural examination (principal)

== ENCOUNTER 2019-01-19 09:03 | Day surgery (SDC) | payer OTHER ==
[~2019-01-19] VITALS: Ht 167.6 cm; Wt 80.7 kg
[~2019-01-19 09:03] MED LIST changes: +CYCL10TA9 PO; +LISI-556 PO
[2019-01-19] MEDS ORDERED: LACTATED RINGERS 1,000 ML IV STA (09:17)
[2019-01-19] MEDS ORDERED: LACTATED RINGERS 1,000 ML IV ONE (09:21)
--- NOTE | 2019-01-19 09:29 | Progress Note-Pre Operative ---
Pre-Operative Progress Note H&P Reviewed The H&P was reviewed, patient examined and no changes noted. Date Seen by Provider: Jan 19, 2019 Time Seen by Provider: 09:28 Date H&P Reviewed: Jan 19, 2019 Time H&P Reviewed: 09:28 Pre-Operative Diagnosis: + STAR Butcher DO Jan 19, 2019 09:29
[2019-01-19] MEDS ORDERED: MIDAZOLAM 5 MG/5 ML (VERSED) VIAL ONE (09:35)
[2019-01-19] MEDS ORDERED: PROPOFOL INJECTION 50 ML IV ONE (09:35)
[2019-01-19 09:43] VITALS: BP 141/87
--- NOTE | 2019-01-19 10:47 | Progress Note-Post Operative ---
Post-Operative Progess Note Surgeon (s)/Fbi Special Agent (s) Surgeon STAR CHRISTOPHER DO Fbi Special Agent: na Pre-Operative Diagnosis + cologuard Post-Operative Diagnosis colon polyps x 5 Procedure & Operative Findings Date of Procedure 01/19/19 Procedure Performed/Findings colonoscopy c hot bx polypectomy x 5 Anesthesia Type per accounting manager assistant controller Estimated Blood Loss Estimated blood loss (mL): none Specimens/Packing Specimens Removed colon polyps STAR CHRISTOPHER DO Jan 19, 2019 10:47
--- NOTE | 2019-01-19 10:49 | Discharge Inst-Simple/Standard ---
Discharge Inst-Standard Patient Instructions/Follow Up Plan of Care/Instructions/FU: 2 weeks charbel Restart Plavix in 3 days. Activity as Tolerated: Yes Discharge Diet: Regular Diet STAR CHRISTOPHER DO Jan 19, 2019 10:49
[2019-01-19 11:05] VITALS: BP 119/72
[2019-01-19 11:35] VITALS: BP 138/74
--- NOTE | 2019-01-19 13:01 | OPERATIVE REPORT ---
DATE OF SERVICE: 01/19/2019 PREOPERATIVE DIAGNOSIS: Positive Cologuard test. POSTOPERATIVE DIAGNOSIS: Colon polyps x 5. PROCEDURE: Colonoscopy with hot biopsy polypectomy x 5. SURGEON: Star Segura DO. ANESTHESIA: Per DIETARY DIRECTOR. ESTIMATED BLOOD LOSS: None. COMPLICATIONS: None. INDICATIONS: The patient is a 48-year-old female who has had a positive culture test. She understands risks and benefits of procedure and wished to proceed with procedure. Consent was signed in the chart. PROCEDURE: The patient was taken to the endoscopy suite and placed in the left lateral recumbent position. Timeout was performed. Digital rectal exam was performed. There were no palpable polyps, masses or ulcerations. Scope was inserted in the rectum and advanced all the way to the cecum with minimal difficulty. There were no polyps, masses or ulcerations in the cecum. In the , two small polyps were present, hot biopsy polypectomy was performed on these. Scope was then continued to slowly be retracted back. There were no polyps, masses or ulcerations in the transverse colon. In the descending colon, one small colon polyp was present, which hot biopsy polypectomy was performed. Scope was continuously retracted back into the sigmoid colon, which there are two small polyps in the sigmoid colon, which hot biopsy polypectomy was performed. Scope was slowly retracted back in the rectum, where it was also retroflexed noting no other pathology. Scope was returned to its normal position, slowly withdrawn until completely removed. The patient tolerated the procedure well without any complications. She was taken to recovery room in stable condition. RECOMMENDATIONS: The patient will need repeat colonoscopy in 3 years. I will have her follow up in the office in 2 weeks to discuss pathology. If any issues before this, be seen at that time. Job ID: [id number] DocumentID: [id number] Dictated Date: 01/19/2019 10:52:48 Cook Jelly Date: 01/19/2019 13:00:21 Dictated By: STAR SEGURA DO
--- NOTE | 2019-01-19 14:23 | Anesthesia-General Post-Op ---
MAC Patient Condition Mental Status/LOC: Same as Preop Cardiovascular: Satisfactory Nausea/Vomiting: Absent Respiratory: Satisfactory Pain: Controlled Complications: Absent Post Op Complications Complications None Follow Up Care/Instructions Patient Instructions None needed. Anesthesiology Discharge Order Discharge Order Patient is doing well, no complaints, stable vital signs, no apparent adverse anesthesia problems. No complications reported per nursing. DELMIS HYMAN CRNA Jan 19, 2019 14:23
== END 2019-01-19 11:50 | disposition home or self-care (01) ==
LOC: ENDO 09:03
PROVIDERS: ATTEND Surgery
DX: D12.2 Benign neoplasm of ascending colon (principal); D12.4 Benign neoplasm of descending colon; I25.10 Atherosclerotic heart disease of native coronary artery without angina pectoris; I10 Essential (primary) hypertension; I73.9 Peripheral vascular disease, unspecified; J44.9 Chronic obstructive pulmonary disease, unspecified; I65.21 Occlusion and stenosis of right carotid artery; Z79.02 Long term (current) use of antithrombotics/antiplatelets; Z79.82 Long term (current) use of aspirin; Z79.899 Other long term (current) drug therapy; Z95.820 Peripheral vascular angioplasty status with implants and grafts; Z87.891 Personal history of nicotine dependence
CPT/HCPCS: 84703

== ENCOUNTER 2019-05-04 11:22 | Emergency (ER) | payer OTHER ==
[~2019-05-04] VITALS: Ht 167.6 cm; Wt 83.5 kg
--- NOTE | 2019-05-04 11:44 | ED Abdominal Pain ---
General Chief Complaint: Abdominal/GI Problems Stated Complaint: R SIDE PAIN Nursing Triage Note: AMB TO ROOM WAS AT WORK ONSET OF R LOWER QUAD PAIN. NO NAUSEA OR VOMITING . Sepsis Screen: No Definite Risk Source of Information: Patient Exam Limitations: No Limitations History of Present Illness Date Seen by Provider: May 04, 2019 Time Seen by Provider: 11:43 Initial Comments To ER per private vehicle with reports of sudden onset right periumbilical/flank pain 40 minutes prior to arrival. Since onset the pain has moved more medial. No nausea or vomiting. No fevers or chills. Timing/Duration: 1/2 Hour Severity/Quality: Moderate Location: RLQ Radiation: No Radiation Activities at Onset: None Associated Symptoms: Nausea/Vomiting Allergies and Home Medications Allergies Coded Allergies: Erythromycin Lactobionate (Verified Allergy, Severe, SOA, RASH, 01/19/19) acetaminophen (Verified Allergy, Severe, SOA, RASH, 01/19/19) methocarbamol (Verified Allergy, Severe, SOA, RASH, 01/19/19) oxycodone HCl (Verified Allergy, Severe, SOA, RASH, 01/19/19) Sulfa (Sulfonamide Antibiotics) (Verified Allergy, Unknown, 12/08/06) codeine (Verified Allergy, Unknown, 12/08/06) Home Medications Acetaminophen 500 Mg Tablet, 1,000 MG PO Q6H PRN for HEADACHE, (Reported) Amlodipine Bes[place] 10 Mg Tablet, 10 MG PO DAILY, (Reported) Aspirin 81 Mg Tablet.dr, 81 MG PO DAILY, (Reported) Atorvastatin Calcium 20 Mg Tablet, 20 MG PO HS, (Reported) Budesonide/Formoterol Fumarate 10.2 Gm Hfa.aer.ad, 1 PUFF IH DAILY, (Reported) Clopidogrel Bisulfate 75 Mg Tablet, 75 MG PO DAILY, (Reported) Cyclobenzaprine HCl 10 Mg Tablet, 10 MG PO TID, (Reported) Lisinopril 5 Mg Tablet, 5 MG PO DAILY, (Reported) Loratadine 10 Mg Tablet, 10 MG PO DAILY, (Reported) Meclizine HCl 25 Mg Tablet, 25 MG PO TID, (Reported) [place] 3 Polyunsat Fatty Acids 1,000 Mg Cap, 1,000 MG PO BID, (Reported) Pantoprazole Sodium 40 Mg Tablet.dr, 40 MG PO DAILY, (Reported) Tiotropium [place] 4 Gm Mist.inhal, 2 PUFF IH DAILY, (Reported) Patient Home Medication List Home Medication List Reviewed: Yes Review of Systems Review of Systems Constitutional: see HPI EENTM: No Symptoms Reported Respiratory: No Symptoms Reported Cardiovascular: No Symptoms Reported Gastrointestinal: See HPI, Abdominal Pain Genitourinary: No Symptoms Reported Musculoskeletal: no symptoms reported Skin: no symptoms reported Psychiatric/Neurological: No Symptoms Reported Endocrine: No Symptoms Reported Hematologic/Lymphatic: No Symptoms Reported Past Gtefwtm-Tsqotp-Iwcunc Hx Patient Social History Alcohol Use: Denies Use Recreational Drug Use: No Smoking Status: Current Someday Smoker Type Used: Cigarettes Former Smoker, Quit: Dec 12, 2018 Recent Foreign Travel: No Contact w/Someone Who Travel: No Recent Infectious Disease Expo: No Recent Hopitalizations: No Immunizations Up To Date Date of Influenza Vaccine: Aug 28, 2018 Seasonal Allergies Seasonal Allergies: Yes Past Medical History Surgeries: Yes Tonsillectomy, Tubal Ligation, Vascular Surgery Respiratory: Yes COPD Cardiac: Yes Coronary Artery Disease, Hypertension, Peripheral Vascular Neurological: No (vertigo) Reproductive Disorders: 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 0.0oz. 83.878463hj; 28.7 BMI Method:Stated General Appearance: WD/WN, no apparent distress HEENT: PERRL/EOMI, normal ENT inspection Respiratory: no respiratory distress, no accessory muscle use Cardiovascular: regular rate, rhythm, no murmur Gastrointestinal: normal bowel sounds, soft, guarding, tenderness Extremities: normal range of motion, non-tender Neurologic/Psychiatric: alert, normal mood/affect, oriented x 3 Skin: normal color, warm/dry Progress/Results/Core Measures Results/Orders Lab Results Laboratory Tests Test 05/04/19 11:30 05/04/19 11:35 Range/Units White Blood Count 13.4 H 4.3-11.0 10^3/uL Red Blood Count 4.43 4.35-5.85 10^6/uL Hemoglobin 13.3 11.5-16.0 G/DL Hematocrit 42 35-52 % Mean Corpuscular Volume 94 80-99 FL Mean Corpuscular Hemoglobin 30 25-34 PG Mean Corpuscular Hemoglobin Concent 32 32-36 G/DL Red Cell Distribution Width 13.5 10.0-14.5 % Platelet Count 445 H 130-400 10^3/uL Mean Platelet Volume 10.3 7.4-10.4 FL Neutrophils (%) (Auto) 74 42-75 % Lymphocytes (%) (Auto) 20 12-44 % Monocytes (%) (Auto) 5 0-12 % Eosinophils (%) (Auto) 1 0-10 % Basophils (%) (Auto) 0 0-10 % Neutrophils # (Auto) 10.0 H 1.8-7.8 X 10^3 Lymphocytes # (Auto) 2.6 1.0-4.0 X 10^3 Monocytes # (Auto) 0.7 0.0-1.0 X 10^3 Eosinophils # (Auto) 0.1 0.0-0.3 10^3/uL Basophils # (Auto) 0.1 0.0-0.1 10^3/uL Sodium Level 137 135-145 MMOL/L Potassium Level 4.1 3.6-5.0 MMOL/L Chloride Level 108 H 98-107 MMOL/L Carbon Dioxide Level 17 L 21-32 MMOL/L Anion Gap 12 5-14 MMOL/L Blood Urea Nitrogen 10 7-18 MG/DL Creatinine 0.85 0.60-1.30 MG/DL Estimat Glomerular Filtration Rate > 60 BUN/Creatinine Ratio 12 Glucose Level 121 H 70-105 MG/DL Calcium Level 9.2 8.5-10.1 MG/DL Corrected Calcium 8.5-10.1 MG/DL Total Bilirubin 0.5 0.1-1.0 MG/DL Aspartate Amino Transf (AST/SGOT) 13 5-34 U/L Alanine Aminotransferase (ALT/SGPT) 11 0-55 U/L Alkaline Phosphatase 71 40-136 U/L Total Protein 7.9 6.4-8.2 GM/DL Albumin 4.6 H 3.2-4.5 GM/DL Urine Color YELLOW Urine Clarity CLEAR Urine pH 6 5-9 Urine Specific [place] 1.020 1.016-1.022 Urine Protein NEGATIVE NEGATIVE Urine Glucose (UA) 1+ H NEGATIVE Urine Ketones NEGATIVE NEGATIVE Urine Nitrite NEGATIVE NEGATIVE Urine Bilirubin NEGATIVE NEGATIVE Urine Urobilinogen NORMAL NORMAL MG/DL Urine Leukocyte Esterase 1+ H NEGATIVE Urine RBC (Auto) 1+ H NEGATIVE Urine RBC RARE /HPF Urine WBC 2-5 /HPF Urine Squamous Epithelial Cells 10-25 H /HPF Urine Crystals NONE /LPF Urine Bacteria FEW H /HPF Urine Casts NONE /LPF Urine Mucus SMALL H /LPF Urine Culture Indicated NO My Orders Orders - DENNY CONWAY APRN Cbc With Automated Diff (05/04/19 11:33) Comprehensive Metabolic Panel (05/04/19 11:33) Ua Culture If Indicated (05/04/19 11:33) Ed Iv/Invasive Line Start (05/04/19 11:33) Ketorolac Injection (Toradol Injection) (05/04/19 11:45) Ct Abd/Pelvis Wo(Kidney Stone) (05/04/19 11:38) Fentanyl Injection (Sublimaze Injection (05/04/19 11:45) Medications Given in ED Current Medications Medications Dose Ordered Sig/Silvia Route Start Time Stop Time Status Last Admin Dose Admin Ketorolac Tromethamine 15 mg ONCE ONCE IVP 05/04/19 11:45 05/04/19 11:46 DC 05/04/19 11:45 15 MG Vital Signs/I&O 05/04/19 11:26 Temp 97.6 Pulse 127 Resp 18 B/P (MAP) 167/91 (116) Pulse Ox 97 O2 Delivery Room Air Blood Pressure Mean: 116 Departure Communication (Admissions) 1229-pain was 8 out of 10 on arrival, currently 2 out of 10 after 15 mg of Toradol IV. Impression Primary Impression: Abdominal pain Qualified Codes: R10.31 - Right lower quadrant pain Disposition: 01 HOME, SELF-CARE Condition: Improved Departure-Patient Inst. Decision time for Depature: 12:29 Referrals: BELLO SEPULVEDA DO (PCP/Family) Primary Care Physician Patient Instructions: Acute Abdomen (Belly Pain), Adult (DC) Add. Discharge Instructions: 1. The cause of abdominal pain is not entirely clear. Return to ER for any fevers worsening pain or other concerns. Follow-up with your doctor within 1 week for recheck. All discharge instructions reviewed with patient and/or family. Voiced understanding. Work/School Note: Work Release Form Date Seen in the Emergency Department: May 04, 2019 Return to Work: May 05, 2019 DENNY CONWAY APRN May 04, 2019 11:44
[2019-05-04] MEDS ORDERED: fentaNYL INJECTION 100 MCG/2 ML AMP IVP ONE (11:45)
[2019-05-04] MEDS ORDERED: KETOROLAC 30 MG/ML VIAL IVP ONE (11:45)
[2019-05-04 11:47] LABS: BASOPHILS # (AUTO) 0.1 10^3/uL (0.0-0.1); BASOPHILS % (AUTO) 0 % (0-10); EOSINOPHILS # (AUTO) 0.1 10^3/uL (0.0-0.3); EOSINOPHILS % (AUTO) 1 % (0-10); HEMATOCRIT 42 % (35-52); HEMOGLOBIN 13.3 G/DL (11.5-16.0); LYMPHOCYTES # (AUTO) 2.6 X 10^3 (1.0-4.0); LYMPHOCYTES % (AUTO) 20 % (12-44); MEAN CORPUSCULAR HEMOGLOBIN 30 PG (25-34); MEAN CORPUSCULAR HGB CONC 32 G/DL (32-36); MEAN CORPUSCULAR VOLUME 94 FL (80-99); MEAN PLATELET VOLUME 10.3 FL (7.4-10.4); MONOCYTES # (AUTO) 0.7 X 10^3 (0.0-1.0); MONOCYTES % (AUTO) 5 % (0-12); NEUTROPHILS % (AUTO) 74 % (42-75); PLATELET COUNT 445 10^3/uL (130-400); RED CELL DISTRIBUTION WIDTH 13.5 % (10.0-14.5); WHITE BLOOD COUNT 13.4 10^3/uL (4.3-11.0)
[2019-05-04 11:48] LABS: BILIRUBIN,URINE NEGATIVE (NEGATIVE); CLARITY,URINE CLEAR; COLOR,URINE YELLOW; GLUCOSE, URINE (UA) 1+ (NEGATIVE); KETONES,URINE NEGATIVE (NEGATIVE); LEUKOCYTE ESTERASE ,URINE 1+ (NEGATIVE); NITRITE,URINE NEGATIVE (NEGATIVE); PH,URINE 6 (5-9); PROTEIN,URINE NEGATIVE (NEGATIVE); UROBILINOGEN,URINE NORMAL (NORMAL)
[2019-05-04 11:57] LABS: BACTERIA,URINE FEW /HPF; RBC,URINE RARE /HPF
[2019-05-04 11:58] LABS: ALANINE AMINOTRANSFERASE 11 U/L (0-55); ALBUMIN 4.6 GM/DL (3.2-4.5); ALKALINE PHOSPHATASE 71 U/L (40-136); BILIRUBIN,TOTAL 0.5 MG/DL (0.1-1.0); BUN/CREATININE RATIO 12; CALCIUM 9.2 MG/DL (8.5-10.1); CARBON DIOXIDE 17 MMOL/L (21-32); CHLORIDE 108 MMOL/L (98-107); CREATININE SERUM 0.85 MG/DL (0.60-1.30); GFR ESTIMATED > 60; GLUCOSE 121 MG/DL (70-105); POTASSIUM 4.1 MMOL/L (3.6-5.0); SODIUM 137 MMOL/L (135-145); TOTAL PROTEIN 7.9 GM/DL (6.4-8.2)
--- NOTE | 2019-05-04 12:02 | NUR ---
BACK FROM CT PAIN 12/27
--- NOTE | 2019-05-04 12:20 | Diagnostic Imaging Report ---
PROCEDURE: CT urinary tract, rule out kidney stone. TECHNIQUE: Multiple contiguous axial images were obtained through the abdomen and pelvis without the use of intravenous contrast. Auto Exposure Controls were utilized during the CT exam to meet ALARA standards for radiation dose reduction. DATE: May 04, 2019. COMPARISON: MRI pelvis of April 19, 2013. INDICATION: 48-year-old female, right lower quadrant abdominal pain. FINDINGS: There are limitations for evaluation of the abdominal organs, neoplastic processes, abscess, and limited evaluation of the vasculature relating to the lack of intravenous contrast. There are tubular opacities in the right lower lobe with adjacent areas of hyperlucent lung on axial images 6 and 7 as well as adjacent images. These measure up to maximally 8 mm in size and are calcified. There is also a high attenuation calcified right lower lobe granuloma on axial image 8. There are additional small calcified granulomas present. There are mild peripheral cystic changes in the left lower lobe as well as in the dependent aspect of the right lower lobe as well. The heart is not enlarged. There is no pericardial effusion. The appearance of the lung bases is essentially unchanged since the July 16, 2017 CT chest. The liver is normal in size and contour. The gallbladder is unremarkable. There is no intrahepatic or extrahepatic bile duct dilation. The main pancreatic duct is not abnormally dilated. Limited noncontrast evaluation of the pancreatic parenchyma is unremarkable. The spleen is normal in size. The adrenal glands are unremarkable. Unremarkable appearance of the renal parenchyma. There is a punctate 1-2 mm nonobstructing left renal stone on axial image 43. There is no identified ureteral stone. The urinary collecting systems are not distended. The urinary bladder is underdistended and not well evaluated. There is a low-attenuation lesion in the right adnexa on axial image 96 measuring 1.3 cm in size, most likely reflecting a right ovarian follicle. There are surgical clips in the right and left adnexa. The intestinal tract is not distended. The appendix is well seen on axial image 75 and adjacent sequential images. There is no evidence of acute appendicitis. There is a small diverticulum at the level of the third portion of the duodenum. There is no free intraperitoneal air. There is no drainable fluid collection. There is no sizable volume of free pelvic fluid. There are atherosclerotic calcifications. There is no identified abnormally enlarged lymph node in the abdomen or pelvis which meets CT size criteria for adenopathy. There is grade 1 anterolisthesis of L5 on S1 relating to facet degenerative changes. There are additional degenerative changes of the thoracolumbar spine. There is no identified acute bony abnormality. IMPRESSION: 1. Punctate 1-2 mm nonobstructing left renal stone. No ureteral stone or hydronephrosis. 2. No evidence of acute appendicitis. 3. No identified acute abnormality in the abdomen or pelvis. 4. Sequela of prior granulomatous disease with unchanged cystic foci in the lung bases. Dictated by: Dictated on workstation # [id number]
[2019-05-04 12:35] VITALS: BP 122/78
== END 2019-05-04 12:44 | disposition home or self-care (01) ==
LOC: EDUNIT# 11:22 → ER 11:23
DX: R10.31 Right lower quadrant pain (principal); J44.9 Chronic obstructive pulmonary disease, unspecified; I25.10 Atherosclerotic heart disease of native coronary artery without angina pectoris; I10 Essential (primary) hypertension; I73.9 Peripheral vascular disease, unspecified; Z91.041 Radiographic dye allergy status; Z88.5 Allergy status to narcotic agent; Z88.8 Allergy status to other drugs, medicaments and biological substances; Z88.0 Allergy status to penicillin; Z79.82 Long term (current) use of aspirin; Z79.02 Long term (current) use of antithrombotics/antiplatelets; Z87.891 Personal history of nicotine dependence; Z98.51 Tubal ligation status; Z90.89 Acquired absence of other organs
CPT/HCPCS: 36415; 74176; 80053; 81000; 85025; 96374

== ENCOUNTER → 2020-04-03 | Outpatient (CLI) | payer OTHER ==
[~2020-04-03] MED LIST changes: -MECL-106 PO; +MECL-149 PO
== END ==
LOC: CARD 14:33
PROVIDERS: ATTEND Physician Assistant
DX: I25.10 Atherosclerotic heart disease of native coronary artery without angina pectoris (principal); J44.9 Chronic obstructive pulmonary disease, unspecified; I10 Essential (primary) hypertension; I73.9 Peripheral vascular disease, unspecified; R06.02 Shortness of breath; I77.1 Stricture of artery
CPT/HCPCS: 93306

== ENCOUNTER 2022-03-12 11:58 | Emergency (ER) | payer SELFPAY ==
[~2022-03-12] VITALS: Ht 170 cm; Wt 79.0 kg
[~2022-03-12 11:58] MED LIST changes: +AMLO-251 PO; -AMLO10TA7 PO; +ASPI-1238 PO; -ASPI-983 PO; +CYCL10TA25 PO; -CYCL10TA9 PO; -LISI-556 PO; +LISI5TAB20 PO
--- NOTE | 2022-03-12 12:22 | ED Chest Pain ---
General Chief Complaint: Chest Wall Stated Complaint: NECK/UPPER CHEST PAIN Source: patient Exam Limitations: no limitations (ELAINE CRUZ APRN) History of Present Illness Date Seen by Provider: Mar 12, 2022 Time Seen by Provider: 12:20 Initial Comments This is a well-appearing 51-year-old female who presented to the ER from her primary care office Dr. Sepulveda. She has been having intermittent sharp aching pain underneath her left clavicle for the past 3 to 4 days. She does have a history of a left subclavian artery stent and is concerned this may be possibly occluded. She had taken anticoagulants in the past however has not taken "in a long time". She was also on dual antiplatelet medication with Plavix and aspirin however she stopped taking aspirin 2 months ago due to blood in her urine. States that she has only been taking Plavix and she does take this daily as directed. 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 Denies fever, chills, cough, chest pain, shortness of breath. (ELAINE CRUZ APRN) Allergies and Home Medications Allergies Coded Allergies: Erythromycin Lactobionate (Verified Allergy, Severe, SOA, RASH, 01/19/19) acetaminophen (Verified Allergy, Severe, SOA, RASH, 01/19/19) methocarbamol (Verified Allergy, Severe, SOA, RASH, 01/19/19) oxycodone HCl (Verified Allergy, Severe, SOA, RASH, 01/19/19) Sulfa (Sulfonamide Antibiotics) (Verified Allergy, Unknown, 12/08/06) codeine (Verified Allergy, Unknown, 12/08/06) Patient Home Medication List Home Medication List Reviewed: Yes (ELAINE CRUZ APRN) Acetaminophen (Tylenol Extra Strength) 500 Mg Tablet, 1,000 MG PO Q6H PRN for HEADACHE, (Reported) Entered as Reported by: KALIE HOLLINS on 12/11/16 0924 Amlodipine Besylate (Amlodipine Besylate) 10 Mg Tablet, 10 MG PO DAILY, (Reported) Entered as Reported by: MARK TRAORE on 01/12/19 1530 Amlodipine Besylate (Amlodipine Besylate) 10 Mg Tablet, 10 MG PO DAILY Prescribed by: ELAINE CRUZ on 03/12/22 1347 Aspirin (Aspirin EC) 81 Mg Tablet.dr, 81 MG PO DAILY, (Reported) Entered as Reported by: EDITH ARRIAGA on 07/17/16 1226 Atorvastatin Calcium (Atorvastatin Calcium) 20 Mg Tablet, 20 MG PO HS, (Reported) Entered as Reported by: MARK TRAORE on 01/12/19 1529 Budesonide/Formoterol Fumarate (Symbicort 160-4.5 Mcg Inhaler) 10.2 Gm Hfa.aer.ad, 1 PUFF IH DAILY, (Reported) Entered as Reported by: EDITH ARRIAGA on 07/17/16 1226 Clopidogrel Bisulfate (Plavix) 75 Mg Tablet, 75 MG PO DAILY, (Reported) Entered as Reported by: KALIE HOLLINS on 12/11/16 0922 Cyclobenzaprine HCl (Cyclobenzaprine HCl) 10 Mg Tablet, 10 MG PO TID, (Reported) Entered as Reported by: MARK TRAORE on 01/12/19 1529 Lisinopril (Lisinopril) 5 Mg Tablet, 5 MG PO DAILY, (Reported) Entered as Reported by: MARK TRAORE on 01/12/19 1529 Lisinopril (Lisinopril) 5 Mg Tablet, 5 MG PO DAILY Prescribed by: ELAINE CRUZ on 03/12/22 1347 Loratadine (Loratadine) 10 Mg Tablet, 10 MG PO DAILY, (Reported) Entered as Reported by: MARK TRAORE on 01/12/19 1529 Meclizine HCl (Meclizine HCl) 25 Mg Tablet, 25 MG PO TID, (Reported) Entered as Reported by: EDITH ARRIAGA on 07/17/16 1226 [place] 3 Polyunsat Fatty Acids (Fish Oil 1,000 mg Capsule) 1,000 Mg Cap, 1,000 MG PO BID, (Reported) Entered as Reported by: MARK TRAORE on 01/12/19 1529 Pantoprazole Sodium (Protonix) 40 Mg Tablet.dr, 40 MG PO DAILY, (Reported) Entered as Reported by: KALIE HOLLINS on 12/11/16 0924 Tiotropium [place] (Spiriva Respimat 2.5MCG/ACTUATION) 4 Gm Mist.inhal, 2 PUFF IH DAILY, (Reported) Entered as Reported by: EDITH ARRIAGA on 07/17/16 1226 Review of Systems Review of Systems Constitutional: no symptoms reported EENTM: No Symptoms Reported Respiratory: No Symptoms Reported Cardiovascular: No Symptoms Reported Gastrointestinal: No Symptoms Reported Genitourinary: No Symptoms Reported Musculoskeletal: see HPI Skin: no symptoms reported Psychiatric/Neurological: No Symptoms Reported Endocrine: No Symptoms Reported Hematologic/Lymphatic: No Symptoms Reported (ELAINE CRUZ APRN) Past Yuxcgeg-Ibmidu-Vxvgfx Hx Seasonal Allergies Seasonal Allergies: Yes (ELAINE CRUZ APRN) Past Medical History Surgeries: Yes Tonsillectomy, Tubal Ligation, Vascular Surgery Respiratory: Yes COPD Cardiac: Yes Coronary Artery Disease, Hypertension, Peripheral Vascular Neurological: No (vertigo) Reproductive Disorders: No 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 0.0oz. 83.529695we; 28.7 BMI Method:Stated General Appearance: No Apparent Distress, WD/WN HEENT: PERRL/EOMI, Normal ENT Inspection, Pharynx Normal, Moist Mucous Membranes Neck: Full Range of Motion, Normal Inspection, Non Tender, Supple Respiratory: Lungs Clear, Normal Breath Sounds, No Accessory Muscle Use, No Respiratory Distress Cardiovascular: Regular Rate, Rhythm, No Edema, No Gallop Gastrointestinal: No Organomegaly, Non Tender, Soft Extremity: Normal Capillary Refill (BUE), Normal Inspection (BUE), Normal Range of Motion (BUE), Non Tender Neurologic/Psychiatric: Alert, Oriented x3, No Motor/Sensory Deficits, Normal Mood/Affect Skin: Normal Color, Warm/Dry (ELAINE CRUZ APRN) Progress/Results/Core Measures Results/Orders Lab Results Laboratory Tests Test 4/26/22 12:15 Range/Units White Blood Count 9.6 4.3-11.0 10^3/uL Red Blood Count 5.02 3.80-5.11 10^6/uL Hemoglobin 15.3 11.5-16.0 g/dL Hematocrit 49 35-52 % Mean Corpuscular Volume 97 80-99 fL Mean Corpuscular Hemoglobin 31 25-34 pg Mean Corpuscular Hemoglobin Concent 32 32-36 g/dL Red Cell Distribution Width 13.0 10.0-14.5 % Platelet Count 371 130-400 10^3/uL Mean Platelet Volume 10.5 9.0-12.2 fL Immature Granulocyte % (Auto) 1 % Neutrophils (%) (Auto) 65 42-75 % Lymphocytes (%) (Auto) 27 12-44 % Monocytes (%) (Auto) 5 0-12 % Eosinophils (%) (Auto) 2 0-10 % Basophils (%) (Auto) 1 0-10 % Neutrophils # (Auto) 6.2 1.8-7.8 10^3/uL Lymphocytes # (Auto) 2.6 1.0-4.0 10^3/uL Monocytes # (Auto) 0.5 0.0-1.0 10^3/uL Eosinophils # (Auto) 0.2 0.0-0.3 10^3/uL Basophils # (Auto) 0.1 0.0-0.1 10^3/uL Immature Granulocyte # (Auto) 0.1 0.0-0.1 10^3/uL Prothrombin Time 13.3 12.2-14.7 SEC INR Comment 1.0 0.8-1.4 Activated Partial Thromboplast Time 26 24-35 SEC D-Dimer <= 0.27 0.00-0.49 UG/ML Sodium Level 139 135-145 MMOL/L Potassium Level 3.5 L 3.6-5.0 MMOL/L Chloride Level 103 98-107 MMOL/L Carbon Dioxide Level 22 21-32 MMOL/L Anion Gap 14 5-14 MMOL/L Blood Urea Nitrogen 10 7-18 MG/DL Creatinine 0.93 0.60-1.30 MG/DL Estimat Glomerular Filtration Rate 73 BUN/Creatinine Ratio 11 Glucose Level 91 70-105 MG/DL Calcium Level 9.5 8.5-10.1 MG/DL Corrected Calcium 9.3 8.5-10.1 MG/DL Magnesium Level 2.1 1.6-2.4 MG/DL Total Bilirubin 0.4 0.1-1.0 MG/DL Aspartate Amino Transf (AST/SGOT) 13 5-34 U/L Alanine Aminotransferase (ALT/SGPT) 17 0-55 U/L Alkaline Phosphatase 75 40-136 U/L Myoglobin 39.5 10.0-92.0 NG/ML Troponin I < 0.028 <0.028 NG/ML Total Protein 7.2 6.4-8.2 GM/DL Albumin 4.2 3.2-4.5 GM/DL (ZARINA COOK MD) Vital Signs/I&O 03/12/22 03/12/22 12:00 14:11 Temp 36.7 36.7 Pulse 80 80 Resp 18 18 B/P (MAP) 178/93 (121) 167/93 Pulse Ox 100 100 (ZARINA COOK MD) Progress Progress Note : Progress Note Upon arrival she is in no acute distress. Orders placed for labs, EKG, and CT angio chest. States that she has some tingling in her left hand but has not noticed this until Dr. Sepulveda specifically asked about it. Labs and imaging reviewed, all are unremarkable. CT does not specifically address patency of subclavian stent. Will review with radiologist. 1325: Reviewed imaging with radiologist Dr. Madrigal, reports subclavian stent is patent. 1331: Discussed case with Dr. Asif, would like patient to follow up with him next week. Reviewed discharge plan of care with patient and she agreeable with plan. She is noted to be very hypertensive in the emergency department. States that she used to take multiple antihypertensives however since she was unable to follow- up with Dr. Asif she has not had any of them refilled. Updated Dr. Asif on blood pressure in ED, ok to restart previous Amlodipine and Lisinopril. (ELAINE CRUZ ACOUSTIC ENGINEER) Initial ECG Impression Date: Mar 12, 2022 Initial ECG Impression Time: 12:13 Initial ECG Rate: 81 Initial ECG Rhythm: Normal Sinus Initial ECG Intervals: Normal Initial ECG Impression: Nonspecific Changes (ELAINE CRUZ APRN) Diagnostic Imaging Diagonstic Imaging: Xray Plain Films/CT/US/NM/MRI: chest Comments [facility], [place] NAME: ELANA PRECIADO [facility] REC#: [id number] PT STATUS: DEP ER : 1970 PHYSICIAN: ELAINE CRUZ ACOUSTIC ENGINEER ADMIT DATE: 03/12/22/ER Signed Date of Exam:03/12/22 CHEST 1 VIEW, AP/PA ONLY CHEST 1 VIEW, AP/PA ONLY INDICATION: Chest pain. COMPARISON: CTA chest performed concurrently. FINDINGS: Opacities in the bilateral upper lobes correspond to areas of atelectasis and scar seen on CT. Heart is normal in size. No pleural effusion or pneumothorax. IMPRESSION: 1. Bilateral upper lobe atelectasis and/or scar. 2. No acute abnormality by portable radiography. Dictated by: Dictated on workstation # [id number] Dict: 03/12/22 1252 Trans: 03/12/22 1421 [id number] Interpreted by: SELWYN WILKINS MD Electronically signed by: SELWYN WILKINS MD 03/12/22 1421 Reviewed: Reviewed by Mi Diagonstic Imaging: CT Plain Films/CT/US/NM/MRI: chest Comments [facility] [place] NAME: ELANA PRECIADO [facility] REC#: [id number] PT STATUS: REG ER : 1970 PHYSICIAN: ELAINE CRUZ ACOUSTIC ENGINEER ADMIT DATE: 03/12/22/ER Signed Date of Exam:03/12/22 CT ANGIO CHEST W PROCEDURE: CT angiography of the chest with contrast. TECHNIQUE: Multiple contiguous axial images were obtained through the chest after uneventful bolus administration of intravenous contrast. 3D reconstructed CTA MIP acquisitions were also performed. Auto Exposure Controls were utilized during the CT exam to meet ALARA standards for radiation dose reduction. INDICATION: Chest pain with radiculopathy to the back. COMPARISON: 01/02/2019. 07/16/2017. FINDINGS: No evidence of aneurysm or dissection in the thoracic aorta. No evidence of pulmonary emboli to the subsegmental pulmonary arteries. The heart size is within normal limits. No pericardial effusion is present. There is no mediastinal, hilar, or axillary lymphadenopathy. Scarring is visualized in the right upper lobe, similar to the prior exam. There is associated bronchiectasis and volume loss in the right upper lobe. Centrilobular and paraseptal emphysema is seen in the lungs. Calcified granulomas are scattered throughout the lungs. The lungs demonstrate no pulmonary nodules or masses. There are no focal areas of consolidation. No central endobronchial obstructing lesions are identified. There is no pleural effusion or pneumothorax. The osseous structures demonstrate no acute abnormalities. Limited views of the upper abdominal structures demonstrate no acute abnormalities. Both adrenal glands are unremarkable. IMPRESSION: 1. No evidence of dissection or aneurysm in the thoracic aorta. 2. No evidence of pulmonary emboli to the subsegmental pulmonary arteries. 3. Chronic scarring in the right upper lobe. This is similar to the prior exam. 4. Centrilobular and paraseptal emphysema. 5. Scattered calcified granulomas throughout both lungs, suggestive of prior granulomatous disease. Dictated by: Dictated on workstation # [id number] Dict: 03/12/22 1247 Trans: 03/12/22 1300 [id number] Interpreted by: BA CISNEROS DO Electronically signed by: BA CISNEROS DO 03/12/22 1300 Reviewed: Reviewed by Me, Discussed w/Radiologist (ELAINE CRUZ APRN) Departure Impression Primary Impression: Left shoulder pain Additional Impression: Hypertension Disposition: 01 HOME, SELF-CARE Condition: Stable Departure-Patient Inst. Decision time for Depature: 13:40 (ELAINE CRUZ APRN) Referrals: BELLO SEPULVEDA DO (PCP/Family) Primary Care Physician Patient Instructions: High Blood Pressure ED, Shoulder Pain (DC) Add. Discharge Instructions: Plan: 1. No lifting anything over 20 pounds. No straining, pulling, lifting x 1 week. 2. Follow up with Dr. Asif he would like to see you next week, please call office to schedule close follow up. 3. Take blood pressure medications daily as directed. Continue your home Plavix daily as directed. 4. Follow up with your primary care provider if symptoms persist despite resting. May take Tylenol as needed. 5. Return for any new, concerning, or worsening symptoms. All discharge instructions reviewed with patient and/or family. Voiced understanding. Scripts Lisinopril (Lisinopril) 5 Mg Tablet 5 MG PO DAILY for 30 Days, #30 TAB 0 Refills Prov: ELAINE CRUZ ACOUSTIC ENGINEER 03/12/22 Amlodipine Besylate (Amlodipine Besylate) 10 Mg Tablet 10 MG PO DAILY for 30 Days, #30 TAB 0 Refills Prov: ELAINE CRUZ ACOUSTIC ENGINEER 03/12/22 ATTENDING PHYSICIAN NOTE: I was physically present as attending physician in the emergency department during the care of this patient. I received the initial phone call and report from Dr. Sepulveda which was in turn shared with Elaine Cruz NP. I reviewed the case with Elaine after she interviewed the patient. We discussed imaging modalities. I recommended discussion with the tester regulator regarding specific i nterpretation of imaging of the subclavian vessels. I did not personally examine or interview this patient. (ZARINA COOK MD) Copy Copies To 1: BELLO SEPULVEDA STORMY D ACOUSTIC ENGINEER Mar 12, 2022 12:22 ZARINA COOK MD Mar 13, 2022 06:25
[2022-03-12] MEDS ORDERED: HOLD METFORMIN - RECEIVED CONTRAST 20 ML VIAL IV SCH (12:30)
[2022-03-12] MEDS ORDERED: CATHETER FLUSH 10 ML SYR IV PRN (12:30)
[2022-03-12] MEDS ORDERED: IOHEXOL 350 MG/ML 100 ML (OMNIPAQUE 350) VIAL IV ONE (12:30)
[2022-03-12] MEDS ORDERED: NS 100 ML (IVPB) BAG IV ONE (12:30)
[2022-03-12 12:32] LABS: BASOPHILS # (AUTO) 0.1 10^3/uL (0.0-0.1); BASOPHILS % (AUTO) 1 % (0-10); EOSINOPHILS # (AUTO) 0.2 10^3/uL (0.0-0.3); EOSINOPHILS % (AUTO) 2 % (0-10); HEMATOCRIT 49 % (35-52); HEMOGLOBIN 15.3 g/dL (11.5-16.0); LYMPHOCYTES # (AUTO) 2.6 10^3/uL (1.0-4.0); LYMPHOCYTES % (AUTO) 27 % (12-44); MEAN CORPUSCULAR HEMOGLOBIN 31 pg (25-34); MEAN CORPUSCULAR HGB CONC 32 g/dL (32-36); MEAN CORPUSCULAR VOLUME 97 fL (80-99); MEAN PLATELET VOLUME 10.5 fL (9.0-12.2); MONOCYTES # (AUTO) 0.5 10^3/uL (0.0-1.0); MONOCYTES % (AUTO) 5 % (0-12); NEUTROPHILS # (AUTO) 6.2 10^3/uL (1.8-7.8); NEUTROPHILS % (AUTO) 65 % (42-75); PLATELET COUNT 371 10^3/uL (130-400); WHITE BLOOD COUNT 9.6 10^3/uL (4.3-11.0)
[2022-03-12 12:42] LABS: PROTHROMBIN TIME PATIENT 13.3 SEC (12.2-14.7)
[2022-03-12 12:45] LABS: ALBUMIN 4.2 GM/DL (3.2-4.5); POTASSIUM 3.5 MMOL/L (3.6-5.0)
[2022-03-12 12:47] LABS: CALCIUM 9.5 MG/DL (8.5-10.1)
[2022-03-12 12:48] LABS: TOTAL PROTEIN 7.2 GM/DL (6.4-8.2)
[2022-03-12 12:50] LABS: BILIRUBIN,TOTAL 0.4 MG/DL (0.1-1.0)
[2022-03-12 12:51] LABS: CREATININE SERUM 0.93 MG/DL (0.60-1.30)
[2022-03-12 12:54] LABS: MAGNESIUM 2.1 MG/DL (1.6-2.4)
--- NOTE | 2022-03-12 12:56 | Diagnostic Imaging Report ---
CHEST 1 VIEW, AP/PA ONLY INDICATION: Chest pain. COMPARISON: CTA chest performed concurrently. FINDINGS: Opacities in the bilateral upper lobes correspond to areas of atelectasis and scar seen on CT. Heart is normal in size. No pleural effusion or pneumothorax. IMPRESSION: 1. Bilateral upper lobe atelectasis and/or scar. 2. No acute abnormality by portable radiography. Dictated by: Dictated on workstation # [id number]
--- NOTE | 2022-03-12 12:59 | Diagnostic Imaging Report ---
PROCEDURE: CT angiography of the chest with contrast. TECHNIQUE: Multiple contiguous axial images were obtained through the chest after uneventful bolus administration of intravenous contrast. 3D reconstructed CTA MIP acquisitions were also performed. Auto Exposure Controls were utilized during the CT exam to meet ALARA standards for radiation dose reduction. INDICATION: Chest pain with radiculopathy to the back. COMPARISON: 01/02/2019. 07/16/2017. FINDINGS: No evidence of aneurysm or dissection in the thoracic aorta. No evidence of pulmonary emboli to the subsegmental pulmonary arteries. The heart size is within normal limits. No pericardial effusion is present. There is no mediastinal, hilar, or axillary lymphadenopathy. Scarring is visualized in the right upper lobe, similar to the prior exam. There is associated bronchiectasis and volume loss in the right upper lobe. Centrilobular and paraseptal emphysema is seen in the lungs. Calcified granulomas are scattered throughout the lungs. The lungs demonstrate no pulmonary nodules or masses. There are no focal areas of consolidation. No central endobronchial obstructing lesions are identified. There is no pleural effusion or pneumothorax. The osseous structures demonstrate no acute abnormalities. Limited views of the upper abdominal structures demonstrate no acute abnormalities. Both adrenal glands are unremarkable. IMPRESSION: 1. No evidence of dissection or aneurysm in the thoracic aorta. 2. No evidence of pulmonary emboli to the subsegmental pulmonary arteries. 3. Chronic scarring in the right upper lobe. This is similar to the prior exam. 4. Centrilobular and paraseptal emphysema. 5. Scattered calcified granulomas throughout both lungs, suggestive of prior granulomatous disease. Dictated by: Dictated on workstation # [id number]
[2022-03-12] MEDS ORDERED: AMLO-251 PO (13:47)
[2022-03-12] MEDS ORDERED: LISI5TAB20 PO (13:47)
[2022-03-12 14:11] VITALS: BP 167/93
== END 2022-03-12 14:17 | disposition home or self-care (01) ==
LOC: EDUNIT# 11:58 → ER 12:00
DX: M25.512 Pain in left shoulder (principal); I10 Essential (primary) hypertension; Z79.02 Long term (current) use of antithrombotics/antiplatelets
CPT/HCPCS: 36415; 71045; 71275; 80053; 83735; 83874; 84484; 85025; 85379; 85610; 85730; 93005; 93041